=== PATIENT | female | born 1980 | race Caucasian/White ===

== ENCOUNTER 2021-04-30 13:28 | Day surgery (SDC) | payer BC, OTHER ==
[~2021-04-30 13:28] MED LIST: LACTATED RINGERS 1,000 ML IV SCH
[2021-04-30 14:13] VITALS: TEMP 98.9
[2021-04-30] MEDS ORDERED: LIDOCAINE 1% (10MG/ML) FOR IV START INTRADERMA ONE (14:19)
[2021-04-30] MEDS ORDERED: methylPREDNISolone ACETATE 40 MG/ML 1 ML VIAL ONE (14:22)
[2021-04-30] MEDS ORDERED: IOPAMIDOL M200 10 ML VIAL ONE (14:22)
[2021-04-30] MEDS ORDERED: MIDAZOLAM 2 MG/2 ML VIAL ONE (14:22)
[2021-04-30] MEDS ORDERED: fentaNYL (PF) 50 MCG/ML 2 ML AMP ONE (14:22)
--- NOTE | 2021-04-30 14:33 | P.PCN ---
Date of Procedure: 04/30/21 Procedure(s) Performed: PREOPERATIVE DIAGNOSIS: 1- Lumbar herniated Disc Diseases 2-Lumbar radiculopathy POSTOPERATIVE DIAGNOSIS: Same as preop diagnosis. PROCEDURE 1. Lumbar epidural steroid injection under fluoroscopic guidance at the L5-S1 level. (Fluoroscopy imaging was available in radiology department) 2. Lumbar epidurogram. ANESTHESIA: Local with 1% lidocaine 3 ml and , moderate sedation with intravenous Versed 2 mg ,and fentanyle 100 Mcg EBL: Minimal PROCEDURE INDICATION: The patient with low back pain and radiculitis symptoms unresponsive to conservative treatment. Fluoroscopy was used to optimize visualization of the needle placement and to maximize safety. PROCEDURE DESCRIPTION / TECHNIQUE: The patient was seen and identified in the preoperative area. Risks, benefits, complications including but not limited to infections ,bleeding ,allergic reaction to the medications ,nerve damage and not complete pain releife , and alternatives were discussed with the patient. The patient agreed to proceed with the procedure and signed the consent. IV was started, and vital signs were stable. Patient was taken to the OR and time out was completed. The patient was placed in the prone position on procedure table and a pillow was placed under the abdomen to reduce lumbar lordosis. The lumbosacral area was prepped and draped in the usual sterile fashion.ere closely monitored during the procedure. Conscious sedation was used during the procedure to decrease patients anxiety. Vital signs was monitered during the entire procedure. Using anterior-posterior fluoroscopy, the L5-S1 interlaminar space was identified and the skin over this site was marked and then infiltrated with 1% lidocaine subcutaneously. Subsequently, a 20-gauge Tuohy epidural needle was inserted and advanced toward the epidural space using the ``Loss of resistance technique and guided by AP and lateral fluoroscopy. The correct needle position in the epidural space was verified with the injection of 2 mL of the water soluble contrast dye Isovue 200 contrast and observing an excellent epidurogram with the epidural spread of the dye, after negative aspiration for blood and CSF and in the absence of paresthesias. Again after negative aspiration, a 6 ml mixture containing 80 mg of Depo-medrol , and 2 ml of preservative free Normal Saline, and 2 ml of preservative free lidocaine 1% solution was injected and a washout of epidurogram was seen. Needle was withdrawn intact, skin was cleansed, and bandages were applied. COMPLICATIONS: None DISPOSITION / PLANS: The patient was placed in a supine position and transferred to the recovery area in a stable condition for observation. There was no evidence of lower extremity motor or sensory deficit after the procedure. Patient was discharged from the recovery room after meeting discharge criteria. Home discharge instructions were given to the patient by the staff. The patient was reexamined prior to discharge. The patient will schedule a follow up in the clinic in 2-4 weeks.
[2021-04-30 14:41] VITALS: RESP 14
[2021-04-30] MEDS ORDERED: ONDANSETRON 4 MG/2 ML VIAL ONE (14:42)
[2021-04-30] MEDS ORDERED: IV FLUID CONTINUATION 1,000 ML IV ONE (14:47)
[2021-04-30] MEDS ORDERED: ONDANSETRON 4 MG/2 ML VIAL IVP ONE (14:47)
[2021-04-30 14:50] VITALS: BP 180/96; PULSE 79
--- NOTE | 2021-04-30 14:57 | FL ---
EXAMINATION TYPE: FL guided pain mgmt statistic DATE OF EXAM: 04/30/2021 HISTORY: Fluoroscopy time 3 seconds of fluoroscopy provided. IMPRESSION: 1. Fluoroscopy time.
== END 2021-04-30 15:23 | disposition home or self-care (01) ==
LOC: ORPAIN 13:28
PROVIDERS: ATTEND Specialist
DX: M51.16 Intervertebral disc disorders with radiculopathy, lumbar region (principal); Z88.6 Allergy status to analgesic agent; Z88.5 Allergy status to narcotic agent
CPT/HCPCS: 81025; 62323; J2250; J1030; J2405; J3010; Q9966

== ENCOUNTER 2024-10-17 10:32 | Inpatient (IN) | payer MEDICAID, OTHER ==
--- NOTE | 2024-10-17 11:31 | ED ---
Back Pain HPI - General Chief Complaint: Back Pain/Injury Stated Complaint: Back Pain Time Seen by Provider: 10/17/24 10:50 Source: patient, RN notes reviewed, old records reviewed Limitations: no limitations - History of Present Illness Initial Comments: 44-year-old female presenting to the ER for evaluation of back pain. Patient states she has chronic back pain. 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 She states during this twisting action she felt a snap/crack/pop in her spine. Since incident she has been experiencing a sharp lumbar right-sided back discomfort with radiation down right lower extremity. Patient was evaluated here on 10/09/24 and states "I received no help". Patient has been taking prescribed Nova, Flexeril, lyrica and ibuprofen without relief of symptoms. She is also tried heating pad and massage. As pain was not controlled she presented to [facility] on [address] lumbar spine scan completed. CT showing degenerative disc disease with disc herniations L4-L5 and L5-S1. Patient given symptomatic control with IV steroids, Dilaudid, Toradol. Patient was discharged home on prednisone and Valium. She states this is not eating with discomfort. She denies any prior back surgeries but is following up with regarding chronic back pain. Patient followed up with him this morning and was instructed to come to the ER for admission with plans on surgical intervention. She denies any saddle paresthesias, bowel or bladder incontinence/retention, fevers or history of IV drug abuse. No other complaints. - Related Data Home Medications Medication Instructions Recorded Confirmed HYDROcodone/APAP 10-325MG [Nova 1 tab PO Q8H PRN 04/30/21 04/30/21 10-325] Phentermine HCl [Adipex-P] 37.5 mg PO DAILY 04/30/21 04/30/21 Allergies Allergy/AdvReac Type Severity Reaction Status Date / Time butorphanol tartrate AdvReac Rash/Hives Verified 10/17/24 10:43 [From Stadol] codeine AdvReac Rash/Hives Verified 10/17/24 10:43 metronidazole [From Flagyl] AdvReac Rash/Hives Verified 10/17/24 10:43 propoxyphene napsylate AdvReac Rash/Hives Verified 10/17/24 10:43 [From Darvocet-N] Review of Systems ROS Statement: Those systems with pertinent positive or pertinent negative responses have been documented in the HPI. ROS Other: All systems not noted in ROS Statement are negative. Past Medical History Past Medical History: Hypertension Additional Past Medical History / Comment(s): sciatic nerve pain History of Any Multi-Drug Resistant Organisms: None Reported Past Surgical History: Section, Tubal Ligation Additional Past Surgical History / Comment(s): UTERINE ABLATION Past Psychological History: No Psychological Hx Reported Past Alcohol Use History: None Reported Past Drug Use History: None Reported General Exam Limitations: no limitations General appearance: alert, in no apparent distress Respiratory exam: Present: normal lung sounds bilaterally. Absent: respiratory distress, wheezes, rales, rhonchi, stridor Cardiovascular Exam: Present: regular rate, normal rhythm, normal heart sounds. Absent: systolic murmur, diastolic murmur, rubs, gallop, clicks Extremities exam: Present: normal inspection, full ROM, normal capillary refill. Absent: tenderness, pedal edema, joint swelling, calf tenderness Back exam: Present: normal inspection, full ROM, tenderness (L4-S1), vertebral tenderness (L4 S1.), other (+ right straight leg raise) Neurological exam: Present: alert, oriented X3, CN II-XII intact Skin exam: Present: warm, dry, intact, normal color. Absent: rash Course Vital Signs 10/17/24 10:38 Temperature 98.2 F Pulse Rate 85 Respiratory 16 Rate Blood Pressure 148/90 O2 Sat by Pulse 98 Oximetry - Reevaluation(s) Reevaluation #1: 10/17/24 12:[address] Tomas. He advised on admitted patient, pain control and n.p.o. at midnight. He also request MRI of the lumbar spine Medical Decision Making - Medical Decision Making Was pt. sent in by a medical professional or institution (, PA, SANDWICH MACHINE OPERATOR, urgent care, hospital, or detention...) When possible be specific @ -Dr. Tomas for further evaluation and admission of lumbar back pain Did you speak to anyone other than the patient for history (EMS, parent, family, police, friend...)? What history was obtained from this source @ -No Did you review nursing and triage notes (agree or disagree)? Why? @ -I reviewed and agree with nursing and triage notes Were old charts reviewed (outside hosp., previous admission, EMS record, old EKG, old radiological studies, urgent care reports/EKG's, detention records)? Report findings @ -[ER visit from 10-09-2024. Patient evaluated after back injury at work. Co nservative treatment options were discussed. Patient refused medications at that time. Patient discharged home. CT lumbar spine reviewed from at [facility]. CT showing degenerative disc disease with disc herniations L4-L5 and L5-S1. Patient received symptomatic treatment at [facility] and was discharged home with Valium and prednisone. Differential Diagnosis (chest pain, altered mental status, abdominal pain women, abdominal pain men, vaginal bleeding, weakness, fever, dyspnea, syncope, headache, dizziness, GI bleed, back pain, seizure, CVA, palpatations, mental health, musculoskeletal)? @ -Differential Back Pain:Strain, zoster, cauda equina syndrome, epidural abscess, vertebral osteomyelitis, discitis, fracture, subluxation, disc hernia tion, DJD, spinal stenosis, dissection, AAA, pancreatitis, peptic ulcer disease, pyelonephritis, kidney stone, this is not meant to be an all-inclusive list. EKG interpreted by me (3pts min.). @ -[As above X-rays interpreted by me (1pt min.). @ -None done CT interpreted by me (1pt min.). @ -None done U/S interpreted by me (1pt. min.). @ -None done What testing was considered but not performed or refused? (CT, X-rays, U/S, labs)? Why? @ -None What meds were considered but not given or refused? Why? @ -None Did you discuss the management of the patient with other professionals (professionals i.e. , PA, SANDWICH MACHINE OPERATOR, lab, RT, psych nurse, social director, transcripter, teacher, property officer, case managers)? Give summary @ -Case discussed with Dr. Tomas. He advised on admission, pain control and plan for intervention tomorrow. MRI ordered per orthopedics. Medicine on consult. Was smoking cessation discussed for >3mins.? @ -No Was critical care preformed (if so, how long)? @ -No Were there social determinants of health that impacted care today? How? (Homelessness, low income, unemployed, alcoholism, drug addiction, transportation, low edu. Level, literacy, decrease access to med. care, care home, rehab)? @ -No Was there de-escalation of care discussed even if they declined (Discuss DNR or withdrawal of care, Hospice)? DNR status @ -No What co-morbidities impacted this encounter? (DM, HTN, Smoking, COPD, CAD, Cancer, CVA, ARF, Chemo, Hep., AIDS, mental health diagnosis, sleep apnea, morbid obesity)? @ -Back pain Was patient admitted / discharged? Hospital course, mention meds given and route, prescriptions, significant lab abnormalities, going to OR and other pertinent info. @ -Admitted. 44-year-old female presented the ER for evaluation of back pain. Patient sent by Dr. Tomas for admission with plans on surgical intervention of lumbar back pain.Upon arrival vitals within acceptable limits. Patient in no signs of acute distress resting comfortably on stretcher. Patient is neurovascularly intact. No red flag back pain symptoms indicative of cauda equina syndrome. Case was discussed with Dr. Tomas who advised on admission, preoperative labs, MRI lumbar spine without contrast with plan on surgical intervention possibly tomorrow. Patient admitted to orthopedics with medicine on consult. Pain control with IV Dilaudid, with improvement upon reevaluation. Preoperative laboratory studies and MRI pending at time of admission. N.p.o. at midnight diet. Patient agreeable and admitted in stable condition. Case discussed with ED attending, Dr. Russell. Undiagnosed new problem with uncertain prognosis? @ -No Drug Therapy requiring intensive monitoring for toxicity (Heparin, Nitro, Insulin, Cardizem)? @ -No Were any procedures done? @ -No Diagnosis/symptom? @ -Back pain Acute, or Chronic, or Acute on Chronic? @ -Acute Uncomplicated (without systemic symptoms) or Complicated (systemic symptoms)? @ -Complicated Side effects of treatment? @ -No Exacerbation, Progression, or Severe Exacerbation? @ -No Poses a threat to life or bodily function? How? (Chest pain, [place], [place], pneumonia, PE, COPD, DKA, ARF, appy, cholecystitis, CVA, Diverticulitis, Homicidal, Suicidal, threat to staff... and all critical care pts) @ -Possibly - Lab Data Result diagrams: 10/17/24 12:39 10/17/24 12:39 Lab Results 10/17/24 10/17/24 Range/Units 12:39 12:39 WBC 11.22 H (4.50-10.00) 10*3/uL RBC 4.04 L (4.10-5.20) 10*6/uL Hgb 12.3 (12.0-15.0) g/dL Hct 36.7 L (37.2-46.3) % MCV 90.8 (80.0-97.0) fL MCH 30.4 (27.0-32.0) pg MCHC 33.5 (32.0-37.0) g/dL Plt Count 279 (140-440) 10*3/uL MPV 9.8 (9.5-12.2) fL Immature Gran % (Auto) 0.9 % Neutrophils % 66.0 % Lymphocytes % 24.4 % Monocytes % 8.0 % Eosinophils % 0.3 % Basophils % 0.4 % Immature Gran # 0.10 H (0.00-0.04) 10*3/uL Neutrophils # 7.41 (1.80-7.70) 10*3/uL Lymphocytes # 2.74 (0.90-5.00) 10*3/uL Monocytes # 0.90 (0.20-1.00) 10*3/uL Eosinophils # 0.03 L (0.04-0.35) 10*3/uL Basophils # 0.04 (0.00-0.10) 10*3/uL Sodium 140 (137-145) mmol/L Potassium 3.5 (3.5-5.1) mmol/L Chloride 105 (98-107) mmol/L Carbon Dioxide 23 (22-30) mmol/L Anion Gap 12 mmol/L BUN 19 H (7-17) mg/dL Creatinine 0.76 (0.52-1.04) mg/dL Est GFR (CKD-EPI)AfAm >90 (>60 ml/min/1.73 sqM) Est GFR (CKD-EPI)NonAf >90 (>60 ml/min/1.73 sqM) Glucose 86 (74-99) mg/dL Calcium 9.3 (8.4-10.2) mg/dL Total Bilirubin 0.3 (0.2-1.3) mg/dL AST 20 (14-36) U/L ALT 17 (4-34) U/L Alkaline Phosphatase 44 (38-126) U/L Total Protein 6.8 (6.3-8.2) g/dL Albumin 3.8 (3.5-5.0) g/dL - EKG Data -: EKG Interpreted by Me EKG Comments: EKG taken at 12: 34 showing a sinus rhythm. No ST segment elevations or depressions. No T wave inversions. Ventricular rate 95, parable 147, QRS duration 89, QT/QTc 341/394. Disposition Clinical Impression: Back pain Disposition: ADMITTED IP TO THIS HOSP Condition: Stable Referrals: Kenia Albright MD [Primary Care Provider] - 1-2 days Time of Disposition: 12:26
[2024-10-17] MEDS: ONDANSETRON 4 MG/2 ML VIAL IVP STA (11:49)
[2024-10-17] MEDS: HYDROmorphone 1 MG/ML 1 ML SYRINGE IVP STA (11:51)
[2024-10-17] MEDS ORDERED: ONDANSETRON 4 MG/2 ML VIAL IVP PRN (12:25)
[2024-10-17] MEDS ORDERED: NALOXONE 0.4 MG/ML 1 ML VIAL IV PRN (12:25)
[2024-10-17 12:55] LABS: Basophils # (A) 0.04 10*3/uL (0.00-0.10); Basophils % (A) 0.4 %; Eosinophils # (A) 0.03 10*3/uL (0.04-0.35); Eosinophils % (A) 0.3 %; HCT 36.7 % (37.2-46.3); HGB 12.3 g/dL (12.0-15.0); Lymphocytes # (A) 2.74 10*3/uL (0.90-5.00); Lymphocytes % (A) 24.4 %; MCH 30.4 pg (27.0-32.0); MCHC 33.5 g/dL (32.0-37.0); MCV 90.8 fL (80.0-97.0); Mean Platelet Volume 9.8 fL (9.5-12.2); Neutrophils # (A) 7.41 10*3/uL (1.80-7.70); Platelet Count 279 10*3/uL (140-440); RBC 4.04 10*6/uL (4.10-5.20); RDW 12.6 % (11.5-14.5); WBC 11.22 10*3/uL (4.50-10.00)
[2024-10-17] MEDS: SODIUM CHLORIDE 0.9% 1,000 ML IV SCH (12:59)
[2024-10-17 13:06] LABS: ALT 17 U/L (4-34); AST 20 U/L (14-36); African American GFR (CKD) >90 (>60 ml/min/1.73 sqM); Albumin 3.8 g/dL (3.5-5.0); Alkaline Phosphatase 44 U/L (38-126); Anion Gap 12 mmol/L; Blood Urea Nitrogen 19 mg/dL (7-17); Calcium 9.3 mg/dL (8.4-10.2); Carbon Dioxide 23 mmol/L (22-30); Chloride 105 mmol/L (98-107); Glucose 86 mg/dL (74-99); Non-African American GFR(CKD) >90 (>60 ml/min/1.73 sqM); Potassium 3.5 mmol/L (3.5-5.1); Sodium 140 mmol/L (137-145); Total Bilirubin 0.3 mg/dL (0.2-1.3); Total Protein 6.8 g/dL (6.3-8.2)
[2024-10-17] MEDS: HYDROmorphone 1 MG/ML 1 ML SYRINGE IVP PRN (14:55)
[2024-10-17 15:12] LABS: INR 0.9 (<1.2); Prothrombin Time 10.3 sec (10.0-12.5)
[2024-10-17 15:14] LABS: Partial Thromboplastin Time 20.1 sec (22.0-30.0)
[2024-10-17] MEDS ORDERED: HYDROcodone/APAP 10-325MG 1 EACH TAB PO SCH (17:00)
[2024-10-17] MEDS ORDERED: DEXTROSE 50% SYRINGE 50 ML IVP PRN ×2 (17:06)
[2024-10-17] MEDS: diazePAM 5 MG TAB PO PRN (17:32)
[2024-10-17] MEDS: PREGABALIN 100 MG CAP PO SCH (17:32)
--- NOTE | 2024-10-17 17:51 | P.CONS ---
History of Present Illness - Reason for Consult Consult date: 10/17/24 Medical Management Requesting physician: Geronimo Tomas - Chief Complaint Back Pain - History of Present Illness History of Presenting Illness: Patient is a pleasant 44-year-old female with a past medical history of hypertension, insulin resistance, chronic back pain with left lower extremity neuropathy and decreased sensation. She presented to the emergency department with acute on chronic lower back pain. Patient reports pain typically radiates down the left leg with decreased sensation but states she is having right lower extremity sciatica and uncontrolled 10 out of 10 back pain despite being on [place] tens, Motrin 800, Lyrica, and Valium. She denies having any saddlebag anesthesia, denies having any involuntary loss of bowel or bladder, and denies having any new or worsening numbness in lower extremities. On arrival to our facility, patient underwent evaluation in the emergency department. Vital signs upon arrival show blood pressure 148/90, heart rate 85, respiratory rate 16, temp 98.2 F, and SpO2 of 98% on room air. EKG was completed showing normal sinus rhythm at 95 bpm with no noted T wave or ST abnormality showing no signs of acute ischemia upon personal review and interpretation. Labs completed and reviewed. CBC showing leukocytosis with WBC count of 11.22. Coagulation profile showing a low PTT of 20.1 otherwise normal findings. BMP showing mild prerenal azotemia with BUN of 19 otherwise normal findings. Blood glucose 86. Liver profile unremarkable. Per documentation in chart patient was seen at [facility] on 10/15/[address] lumbar spine revealing degenerative disc disease with disc herniations L4-L5 and L5-S1. Patient was admitted under orthospine surgery team and we were consulted for medical management throughout hospitalization. Review of systems: Pertinent positives and negatives as discussed in HPI, a complete review of systems was performed and all other systems are negative. Physical exam: Vital signs reviewed and stable. General: Nontoxic, no distress and appears stated age. Derm: Skin warm and dry, normal coloration for ethnicity. Head: Atraumatic, normocephalic and symmetric. Eyes: EOM's intact, no lid lag, and anicteric sclera Mouth: no lip lesions, mucus membranes moist Cardiovascular: regular rate and rhythm with normal S1S2, no murmur, positive posterior tibial pulses bilaterally, and cap refill < 2 seconds. Lungs: Respirations even, regular, and unlabored on room air. Lungs CTA bilaterally, no rhonchi, no rales, no wheezing, and no accessory muscle usage. Abdominal: soft, nontender to palpation, no guarding, no appreciable organomeg myah Ext: No gross muscle atrophy, no edema, no contractures. Movement and sensation intact. Patient does report decreased sensation in left lower extremity but reports at baseline. Neuro: Speech clear, face symmetrical and CN II-XII grossly intact with no noted focal neuro deficits Psych: Alert and oriented to person, place, time, and situation. Appropriate and pleasant affect. Assessment and Plan of Care: Acute on chronic lower back pain Herniated disc L4-L5 and L5-S1 Degenerative disc disease - Patient admitted under orthospine surgery team. - Continue symptomatic care and pain management with Lyrica 100 mg 4 times daily, Valium 5 mg every 8 hours as needed for muscle spasms, Tylenol 650 mg every 6 hours as needed for mild to moderate pain, [place] 10/325 mg tablets every 6 hours as needed for moderate to severe pain, and Dilaudid 1 mg every 3 hours as needed for severe uncontrolled pain. - Maintain fall precautions. - MRI lumbar spine - Patient had tubal ligation however order placed for serum hCG Hypertension -Monitor vital signs and continue daily medication regimen with amlodipine 10 mg daily and losartan 100 mg daily Insulin resistance, type II [id number] diabetes mellitus -Hold metformin and place patient on glycemic protocol with Humalog sliding scale. ADHD -Continue Vyvanse 40 mg daily. Data and imaging reviewed: As stated above in HPI Thank you for allowing us to participate in the care of this pleasant patient. Do not hesitate to contact us with questions. Someone can be reached from the [facility] hospitalist group all hours of the day at [phone] or via [employer]. Patient was seen independently by Nurse Practitioner. This document was prepared using [employer] dictation software. Please allow for errors in lead software architect while rare they do occur. Andrew Angeles NP rendered care for this patient independently, reviewed the findings and plan as documented in the note above and agree with plan. I did not physically speak with or examine the patient on this date. Past Medical History Past Medical History: Hypertension Additional Past Medical History / Comment(s): sciatic nerve pain History of Any Multi-Drug Resistant Organisms: None Reported Past Surgical History: Section, Tubal Ligation Additional Past Surgical History / Comment(s): UTERINE ABLATION Past Psychological History: No Psychological Hx Reported Past Alcohol Use History: None Reported Past Drug Use History: None Reported Medications and Allergies Home Medications Medication Instructions Recorded Confirmed Type HYDROcodone/APAP 10-325MG [[place] 1 tab PO Q6H 04/30/21 10/17/24 History 10-325] Ibuprofen [Motrin] 800 mg PO Q8H PRN 10/17/24 10/17/24 History Lisdexamfetamine Dimesylate 40 mg PO DAILY 10/17/24 10/17/24 History [Vyvanse] Losartan Potassium 100 mg PO DAILY 10/17/24 10/17/24 History Pregabalin [Lyrica] 100 mg PO QID 10/17/24 10/17/24 History amLODIPine [Norvasc] 10 mg PO DAILY 10/17/24 10/17/24 History buPROPion XL [Wellbutrin XL] 150 mg PO DAILY 10/17/24 10/17/24 History diazePAM [Valium] 5 mg PO Q8H PRN 10/17/24 10/17/24 History metFORMIN HCL 500 mg PO BID 10/17/24 10/17/24 History predniSONE 50 mg PO DAILY 10/17/24 10/17/24 History Allergies Allergy/AdvReac Type Severity Reaction Status Date / Time butorphanol tartrate AdvReac Rash/Hives Verified 10/17/24 14:41 [From Stadol] codeine AdvReac Rash/Hives Verified 10/17/24 14:41 metronidazole [From Flagyl] AdvReac Rash/Hives Verified 10/17/24 14:41 propoxyphene napsylate AdvReac Rash/Hives Verified 10/17/24 14:41 [From Darvocet-N] Physical Exam Vitals: Vital Signs Temp Pulse Resp BP Pulse Ox 10/17/24 13:21 98.1 F 78 20 146/78 98 10/17/24 10:38 98.2 F 85 16 148/90 98 Intake and Output 10/17/24 10/17/24 10/17/24 06:59 14:59 22:59 Other: Weight 75.75 kg Results CBC & Chem 7: 10/17/24 12:39 10/17/24 12:39 Labs: Abnormal Lab Results - Last 24 Hours (Table) 10/17/24 10/17/24 10/17/24 Range/Units 12:39 12:39 12:39 WBC 11.22 H (4.50-10.00) 10*3/uL RBC 4.04 L (4.10-5.20) 10*6/uL Hct 36.7 L (37.2-46.3) % Immature Gran # 0.10 H (0.00-0.04) 10*3/uL Eosinophils # 0.03 L (0.04-0.35) 10*3/uL APTT 20.1 L (22.0-30.0) sec BUN 19 H (7-17) mg/dL
[2024-10-17] MEDS: INSULIN LISPRO (HumaLOG) 100 UNIT/ML 10 mL VL SQ SCH (17:57)
[2024-10-17] MEDS: HYDROcodone/APAP 10-325MG 1 EACH TAB PO PRN (20:11)
[2024-10-17 20:14] LABS: Glucose,Whole Blood 132 mg/dL (70-110)
[2024-10-18] MEDS: amLODIPine 10 MG TAB PO SCH (08:24)
[2024-10-18] MEDS: LOSARTAN 50 MG TAB PO SCH (08:24)
[2024-10-18] MEDS: buPROPion XL 150 MG TAB.ER.24H PO SCH (08:25)
[2024-10-18] MEDS: LISDEXAMFETAMINE DIMESYLATE 40 MG PO SCH (08:35)
[2024-10-18] MEDS ORDERED: SENNOSIDES 8.6 MG TAB PO PRN (13:07)
--- NOTE | 2024-10-18 13:08 | P.HPOR ---
History of Present Illness H&P Date: 10/18/24 Chief Complaint: back pain Patient is a 44-year-old female who presents to the emergency department as a direct admission from Dr. Tomas's office due to right lower extremity radiculopathy and low back pain. Patient has a past medical history significant for hypertension, insulin resistance and chronic low back pain. Patient initially had issues in 2020 where she had some numbness in the left lower extremity and was seen by Dr. Tomas office was transferred to another spine surgeon office. Patient says she was treated nonoperatively and this continued for a few years. 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 Patient was seen at bedside this morning on 1 obs. Patient states she is having intense right sided low back pain with radiation down the entire right leg. Patient also states there is weakness with this. Patient denies any loss of bowel/bladder control. Patient says she does have difficult time with ambulation and getting around the room she tends to drag her right leg. Patient also mentions some rigidity down the right lower extremity. Patient also states that she does have a decrease sensation in the left lower extremity. Does not note any weakness in the left lower extremity. Patient says she has previously undergone multiple epidural steroid injections. Patient denies any previous orthopedic spine surgery. Patient did have CT scan of lumbar spine at [facility] on 10/15/2024 which did reveal degenerative disc disease with disc radiations at L4 to L5 and L5-S1. Patient denies any chest pain, change in vis ion, saddle anesthesia. Past Medical History Past Medical History: Hypertension Additional Past Medical History / Comment(s): sciatic nerve pain History of Any Multi-Drug Resistant Organisms: None Reported Past Surgical History: Section, Tubal Ligation Additional Past Surgical History / Comment(s): UTERINE ABLATION Past Psychological History: No Psychological Hx Reported Past Alcohol Use History: None Reported Past Drug Use History: None Reported Medications and Allergies Home Medications Medication Instructions Recorded Confirmed Type HYDROcodone/APAP 10-325MG [[place] 1 tab PO Q6H 04/30/21 10/17/24 History 10-325] Ibuprofen [Motrin] 800 mg PO Q8H PRN 10/17/24 10/17/24 History Lisdexamfetamine Dimesylate 40 mg PO DAILY 10/17/24 10/17/24 History [Vyvanse] Losartan Potassium 100 mg PO DAILY 10/17/24 10/17/24 History Pregabalin [Lyrica] 100 mg PO QID 10/17/24 10/17/24 History amLODIPine [Norvasc] 10 mg PO DAILY 10/17/24 10/17/24 History buPROPion XL [Wellbutrin XL] 150 mg PO DAILY 10/17/24 10/17/24 History diazePAM [Valium] 5 mg PO Q8H PRN 10/17/24 10/17/24 History metFORMIN HCL 500 mg PO BID 10/17/24 10/17/24 History predniSONE 50 mg PO DAILY 10/17/24 10/17/24 History Allergies Allergy/AdvReac Type Severity Reaction Status Date / Time butorphanol tartrate AdvReac Rash/Hives Verified 10/17/24 14:41 [From Stadol] codeine AdvReac Rash/Hives Verified 10/17/24 14:41 metronidazole [From Flagyl] AdvReac Rash/Hives Verified 10/17/24 14:41 propoxyphene napsylate AdvReac Rash/Hives Verified 10/17/24 14:41 [From Darvocet-N] Physical Examination inspection: Negative for any open fractures, significant erythema/ecchymosis/open wounds. Sensation: Sensation is altered/diminished throughout the left lower extremity and right lower extremity on exam. Palpation: Moderate to severe tenderness to palpation on the right lower back and right SI joint on exam. Range of motion: Very limited range of motion on the right lower extremity on exam due to referred pain and stiffness in the right side lower back. Patient is able to flex and extend left hip left knee and dorsi and plantarflex left ankle on exam. Motor: 3/5 in all major motor groups in right lower extremity. 4/5 in all major muscle groups in left lower extremity. Neurovascular: Radial pulse intact, 2+ bilaterally. Cap refill under 3 seconds in digits of upper extremities. Special test: Negative clonus bilaterally. Negative Leigh bilaterally. Negative Homans bilaterally. Results - Labs Labs: Abnormal Lab Results - Last 24 Hours (Table) 10/17/24 10/17/24 10/17/24 Range/Units 12:39 12:39 12:39 WBC 11.22 H (4.50-10.00) 10*3/uL RBC 4.04 L (4.10-5.20) 10*6/uL Hct 36.7 L (37.2-46.3) % Immature Gran # 0.10 H (0.00-0.04) 10*3/uL Eosinophils # 0.03 L (0.04-0.35) 10*3/uL APTT 20.1 L (22.0-30.0) sec BUN 19 H (7-17) mg/dL POC Glucose (mg/dL) (70-110) mg/dL 10/17/24 Range/Units 20:12 WBC (4.50-10.00) 10*3/uL RBC (4.10-5.20) 10*6/uL Hct (37.2-46.3) % Immature Gran # (0.00-0.04) 10*3/uL Eosinophils # (0.04-0.35) 10*3/uL APTT (22.0-30.0) sec BUN (7-17) mg/dL POC Glucose (mg/dL) 132 H (70-110) mg/dL H & H 10/17/24 Range/Units 12:39 Hgb 12.3 (12.0-15.0) g/dL Hct 36.7 L (37.2-46.3) % Coagulation 10/17/24 Range/Units 12:39 INR 0.9 (<1.2) Result Diagrams: 10/17/24 12:39 10/17/24 12:39 Assessment and Plan Assessment: 1. Right lower extremity radiculopathy; low back pain Plan: 1. Right lower extremity radiculopathy; low back pain -[facility] scan results [facility] on 10[facility]15[facility]2024 revealed degenerative disc disease and disc herniations at L4-L5 and L5-S1. I discussed the findings of the exam with my attending, Dr. Tomas. At this time we have ordered MRI stat of the lumbar spine for further evaluation. Patient to be n.p.o. at midnight tonight with possible surgical intervention tomorrow versus Tuesday. Continue with conservative measures at this time. Pain medication as needed. Weightbearing as tolerated with walker. Appreciate PT/OT recommendations. We will continue to follow patient during stay in the hospital. Further Ortho/spine recommendations to come following MRI results on lumbar spine. 2. Appreciate medical management 3. Pain management -[place]; Lyyaaa 4. GI prophylaxis - senna 5. DVT prophylaxis -mechanical 6. PT/OT -weightbearing as tolerated with walker 7. Encourage incentive spirometer use Time with Patient: Less than 30
[2024-10-18] MEDS: LORazepam 2 MG/ML INJ IV ONE (14:48)
--- NOTE | 2024-10-18 15:26 | P.PN ---
Subjective Progress Note Date: 10/18/24 Hospital Course: Patient is a pleasant 44-year-old female with a past medical history of hypertension, insulin resistance, chronic back pain with left lower extremity neuropathy and decreased sensation. She presented to the emergency department with acute on chronic lower back pain. Patient reports pain typically radiates down the left leg with decreased sensation but states she is having right lower extremity sciatica and uncontrolled 10 out of 10 back pain despite being on [place] tens, Motrin 800, Lyrica, and Valium. She denies having any saddlebag anesthesia, denies having any involuntary loss of bowel or bladder, and denies having any new or worsening numbness in lower extremities. On arrival to our facility, patient underwent evaluation in the emergency department. Vital signs upon arrival show blood pressure 148/90, heart rate 85, respiratory rate 16, temp 98.2 F, and SpO2 of 98% on room air. EKG was completed showing normal sinus rhythm at 95 bpm with no noted T wave or ST abnormality showing no signs of acute ischemia upon personal review and interpretation. Labs completed and reviewed. CBC showing leukocytosis with WBC count of 11.22. Coagulation profile showing a low PTT of 20.1 otherwise normal findings. BMP showing mild p rerenal azotemia with BUN of 19 otherwise normal findings. Blood glucose 86. Liver profile unremarkable. Per documentation in chart patient was seen at [facility] on 10/15/[address] lumbar spine revealing degenerative disc disease with disc herniations L4-L5 and L5-S1. Patient was admitted under orthospine surgery team and we were consulted for medical management throughout hospitalization. Physical exam: Patient was seen and fully evaluated at bedside this morning. She reports continued persistent lumbar back pain with right lower extremity radiculopathy. She continues to deny having any saddlebag anesthesia or new onset or changes in chronic numbness/tingling in her extremities. She denies having any involuntary loss of bowel or bladder. She is awaiting to undergo MRI later today per RN MRI is scheduled for 3:30 PM. Vital signs reviewed and stable. General: Nontoxic, no distress and appears stated age. Derm: Skin warm and dry, normal coloration for ethnicity. Head: Atraumatic, normocephalic and symmetric. Eyes: EOM's intact, no lid lag, and anicteric sclera Mouth: no lip lesions, mucus membranes moist Cardiovascular: regular rate and rhythm with normal S1S2, no murmur, positive posterior tibial pulses bilaterally, and cap refill < 2 seconds. Lungs: Respirations even, regular, and unlabored on room air. Lungs CTA bilaterally, no rhonchi, no rales, no wheezing, and no accessory muscle usage. Abdominal: soft, nontender to palpation, no guarding, no appreciable organomegaly Ext: No gross muscle atrophy, no edema, no contractures. Movement and sensation intact. Patient does report decreased sensation in left lower extremity but reports at baseline. Neuro: Speech clear, face symmetrical and CN II-XII grossly intact with no noted focal neuro deficits Psych: Alert and oriented to person, place, time, and situation. Appropriate and pleasant affect. Assessment and Plan of Care: Acute on chronic lower back pain Herniated disc L4-L5 and L5-S1 Degenerative disc disease - Patient admitted under orthospine surgery team. - Continue symptomatic care and pain management with Lyrica 100 mg 4 times daily, Valium 5 mg every 8 hours as needed for muscle spasms, Tylenol 650 mg every 6 hours as needed for mild to moderate pain, [place] 10/325 mg tablets every 6 hours as needed for moderate to severe pain, and Dilaudid 1 mg every 3 hours as needed for severe uncontrolled pain. - Maintain fall precautions. - MRI lumbar spine Hypertension -Monitor vital signs and continue daily medication regimen with amlodipine 10 mg daily and losartan 100 mg daily Insulin resistance, type II [id number] diabetes mellitus -Hold metformin and place patient on glycemic protocol with Humalog sliding scale. ADHD -Continue Vyvanse 40 mg daily. Data and imaging reviewed: Labs reviewed. CBC showing leukocytosis with WBC count of 11.22. Coagulation profile showing a low PTT of 20.1 otherwise normal findings. BMP showing mild prerenal azotemia with BUN of 19 otherwise normal findings. Blood glucose 86. Liver profile unremarkable. Serum hCG negative. Vital signs reviewed. Blood pressure 166/91, heart rate 68, respiratory rate 17, temp 98.2 F, and SpO2 of 97% on room air. Thank you for allowing us to participate in the care of this pleasant patient. Do not hesitate to contact us with questions. Someone can be reached from the [facility] hospitalist group all hours of the day at [phone] or via perfect serve. Patient was seen independently by Nurse Practitioner. This document was prepared using [employer] dictation software. Please allow for errors in railroad car repair supervisor while rare they do occur. Andrew Angeles HEEL GOUGER rendered care for this patient independently, reviewed the findings and plan as documented in the note above and agree with plan. I did not physically speak with or examine the patient on this date. Objective - Vital Signs Vital signs: Vital Signs Temp 98.2 F 10/18/24 07:58 Pulse 68 10/18/24 07:58 Resp 17 10/18/24 02:00 BP 166/91 10/18/24 07:58 Pulse Ox 97 10/18/24 07:58 FiO2 Intake & Output 10/17/24 10/18/24 10/18/24 18:59 06:59 18:59 Output Total 0 Balance 0 Weight 80.2 kg Output: Stool 0 Other: Voiding Method Toilet # Voids 2 - Labs CBC & Chem 7: 10/17/24 12:39 10/17/24 12:39 Labs: Abnormal Lab Results - Last 24 Hours (Table) 10/17/24 10/17/24 10/17/24 Range/Units 12:39 12:39 12:39 WBC 11.22 H (4.50-10.00) 10*3/uL RBC 4.04 L (4.10-5.20) 10*6/uL Hct 36.7 L (37.2-46.3) % Immature Gran # 0.10 H (0.00-0.04) 10*3/uL Eosinophils # 0.03 L (0.04-0.35) 10*3/uL APTT 20.1 L (22.0-30.0) sec BUN 19 H (7-17) mg/dL POC Glucose (mg/dL) (70-110) mg/dL 10/17/24 Range/Units 20:12 WBC (4.50-10.00) 10*3/uL RBC (4.10-5.20) 10*6/uL Hct (37.2-46.3) % Immature Gran # (0.00-0.04) 10*3/uL Eosinophils # (0.04-0.35) 10*3/uL APTT (22.0-30.0) sec BUN (7-17) mg/dL POC Glucose (mg/dL) 132 H (70-110) mg/dL
--- NOTE | 2024-10-18 16:08 | MR ---
EXAMINATION TYPE: MR lumbar spine wo/w con DATE OF EXAM: 10/18/2024 3:49 PM COMPARISON: Lumbar spine radiograph 10/04/2024, CT lumbar spine 10/15/2024, MRI lumbar spine 01/10/2021, 04/12/2015 CLINICAL INDICATION: Female, 44 years old with history of pain, Lumbar pain IV Contrast: 8 cc Gadobutrol (None if empty) TECHNIQUE: Multiplanar, multisequence images of the lumbar spine were acquired without and with 8 mL intravenous Gadobutrol gadolinium contrast. FINDINGS: Alignment: The lumbar vertebral bodies have preserved heights and alignment. Cord: The conus medullaris and the distal spinal cord appear unremarkable with regards to their signa l intensity and morphology. However there is smooth thickening of the thickening of the spinal canal nerve roots beginning at the L3-L4 level and extending inferiorly with enhancement. This is new from prior MRI. Bones/Discs: Type II Modic changes of the endplates around L5-S1 disc. Disc desiccation with height l oss involving the L4-L5 and L5-S1 discs. L1-L2: No significant disc pathology. Spinal canal is patent. The neural foramen are patent. L2-L3: No significant disc pathology. Spinal canal is patent. The neural foramen are patent. L3-L4: No significant disc pathology. Spinal canal is patent. The neural foramen are patent. L4-L5: Right paracentral disc protrusion with abutment of the exiting right S1 nerve root. Resultant mild central canal stenosis. Mild right neural foraminal stenosis. The left neural foramen is patent. L5-S1: Left paracentral disc protrusion with mild central canal stenosis. Mild left neural foraminal stenosis. The right neural foramen is patent. Other findings: Posterior back subcutaneous edema. IMPRESSION: 1. Redemonstration of L4-L5 and L5-S1 disc herniations. The L4-L5 disc herniation abuts the exiting right S1 nerve root. 2. Thickening of the cauda equina with exiting nerve root enhancement. This is nonspecific and can b e seen with a variety of infectious/inflammatory etiologies. Further workup is recommended. [facility], , 10/18/2024 4:05 PM
[2024-10-18 17:08] LABS: Glucose,Whole Blood 91 mg/dL (70-110)
--- NOTE | 2024-10-19 08:06 | P.PN ---
Progress Note - Text Progress Note Date: 10/19/24 MRI reviewed. Pt has HNP at L4-5 RIGHT and L5-S1 smaller but broad. Both cause stenosis. L4-5 causes significant central and RIGHT foraminal stenosis. She would at minimum need RIGHT L4-5 laminectomy microdiscectomy. She needs a fusion at L5-S1 due to severe degenerative collapse and the HNP howevere her pressing issue at this time seems to be the L4-5 HNP. We will discuss with pt and look for surgical time.
[2024-10-19] MEDS ORDERED: GLYCOPYRROLATE 0.2 MG/ML 2 ML VIAL ONE (09:11)
[2024-10-19] MEDS ORDERED: fentaNYL (PF) 50 MCG/ML 2 ML AMP ONE (09:11)
[2024-10-19] MEDS ORDERED: LIDOCAINE 1% INJ 10MG/ML (20 ML MDV) ONE (09:11)
[2024-10-19] MEDS ORDERED: MIDAZOLAM 2 MG/2 ML VIAL ONE (09:11)
[2024-10-19] MEDS ORDERED: KETAMINE HCL IN 0.9 % NACL 50 MG/5 ML SYRINGE ONE (09:11)
[2024-10-19] MEDS ORDERED: PROPOFOL 10 MG/ML 20 ML VIAL IV ONE (09:11)
[2024-10-19] MEDS ORDERED: NEOSTIGMINE 1 MG/ML 10 ML VIAL ONE (09:11)
[2024-10-19] MEDS ORDERED: ROCURONIUM 10 MG/ML (5 ML VIAL) IV ONE (09:11)
[2024-10-19] MEDS ORDERED: SUCCINYLCHOLINE CHLORIDE 200 MG/10 ML VIAL IV ONE (09:11)
[2024-10-19] MEDS ORDERED: ONDANSETRON 4 MG/2 ML VIAL ONE (09:11)
[2024-10-19] MEDS ORDERED: TRANEXAMIC 1,000 MG/100ML-NACL PREMIX BAG ONE (09:11)
--- NOTE | 2024-10-19 11:13 | P.PN ---
Subjective Progress Note Date: 10/19/24 Principal diagnosis: Right lower extremity radiculopathy; low back pain Patient was seen at bedside this morning on 4 S. lying in the semirecumbent composition. Patient says she would like to speak with Dr. Tomas about surgical intervention options. Patient believes she needs more extensive surgery to correct every finding from the CT scan and MRI of the spine and would like to discuss the findings of the MRI with Dr. Tomas. Patient states she is still having pain and weakness down the right lower extremity also mentions numbness which has been ongoing in the left lower extremity for years. I did discuss the findings of the MRI of the lumbar spine with patient at bedside and she is aware of the findings and does not want anything other than surgical intervention at this time. Objective - Vital Signs Vital signs: Vital Signs Temp 98.2 F 10/19/24 07:06 Pulse 67 10/19/24 07:06 Resp 17 10/19/24 07:06 BP 127/82 10/19/24 07:06 Pulse Ox 97 10/19/24 07:06 FiO2 Intake & Output 10/18/24 10/19/24 10/19/24 18:59 06:59 18:59 Other: Voiding Method Toilet # Voids 2 - Exam inspection: Negative for any open fractures, significant erythema/ecchymosis/open wounds. Sensation: Sensation is altered/diminished throughout the left lower extremity and right lower extremity on exam. Palpation: Moderate to severe tenderness to palpation on the right lower back and right SI joint on exam. Range of motion: Very limited range of motion on the right lower extremity on exam due to referred pain and stiffness in the right side lower back. Patient is able to flex and extend left hip left knee and dorsi and plantarflex left ankle on exam. Motor: 3/5 in all major motor groups in right lower extremity. 4/5 in all major muscle groups in left lower extremity. Neurovascular: Radial pulse intact, 2+ bilaterally. Cap refill under 3 seconds in digits of upper extremities. Special test: Negative clonus bilaterally. Negative Leigh bilaterally. Negative Homans bilaterally. - Labs CBC & Chem 7: 10/17/24 12:39 10/17/24 12:39 Assessment and Plan Assessment: 1. Right lower extremity radiculopathy; low back pain Plan: 1. Right lower extremity radiculopathy; low back pain -CT scan results from [facility] on 10/15/2024 revealed degenerative disc disease and disc herniations at L4-L5 and L5-S1. MRI of the lumbar spine performed yesterday does reveal right-sided disc herniation at L4-5 there is also resulting mild central canal stenosis and mild right-sided neuroforaminal sten osis. At L5-S1 there is some mild central canal stenosis as well as left-sided paracentral disc protrusion. I discussed the findings of the image with the patient at bedside this morning. Patient would like to move forward with surgery at this time. I discussed the findings of the exam and imaging with my attending, Dr. Tomas. We are recommending surgical intervention in the form of L4-L5 microdiscectomy. Patient to be n.p.o. at midnight tonight. Surgery has been scheduled for 9 AM tomorrow, 10/20/2024. Pain medication as needed. Weightbearing as tolerated with walker. Appreciate PT/OT recommendations. We will continue to follow patient during stay in the hospital. 2. Appreciate medical management 3. Pain management -[place]; Lyrica 4. GI prophylaxis - senna 5. DVT prophylaxis -mechanical 6. PT/OT -weightbearing as tolerated with walker 7. Encourage incentive spirometer use Time with Patient: Less than 30
--- NOTE | 2024-10-19 16:04 | P.PN ---
Subjective Progress Note Date: 10/19/24 Hospital Course: Patient is a pleasant 44-year-old female with a past medical history of hypertension, insulin resistance, chronic back pain with left lower extremity neuropathy and decreased sensation. She presented to the emergency department with acute on chronic lower back pain. Patient reports pain typically radiates down the left leg with decreased sensation but states she is having right lower extremity sciatica and uncontrolled 10 out of 10 back pain despite being on Scobey tens, Motrin 800, Lyrica, and Valium. She denies having any saddlebag anesthesia, denies having any involuntary loss of bowel or bladder, and denies having any new or worsening numbness in lower extremities. On arrival to our facility, patient underwent evaluation in the emergency department. Vital signs upon arrival show blood pressure 148/90, heart rate 85, respiratory rate 16, temp 98.2 F, and SpO2 of 98% on room air. EKG was completed showing normal sinus rhythm at 95 bpm with no noted T wave or ST abnormality showing no signs of acute ischemia upon personal review and interpretation. Labs completed and reviewed. CBC showing leukocytosis with WBC count of 11.22. Coagulation profile showing a low PTT of 20.1 otherwise normal findings. BMP showing mild p rerenal azotemia with BUN of 19 otherwise normal findings. Blood glucose 86. Liver profile unremarkable. Per documentation in chart patient was seen at [facility] on 10/15/[address] lumbar spine revealing degenerative disc disease with disc herniations L4-L5 and L5-S1. Patient was admitted under orthospine surgery team and we were consulted for medical management throughout hospitalization. Serum hCG negative. Physical exam: Patient was seen and fully evaluated at bedside this morning. Patient continues to report uncontrolled pain and discomfort. She expresses frustration over delay of care stating she should have had surgery yesterday and had to wait for an MRI and now is expected to await for surgery until tomorrow. Patient requested patient sales representative malt liquors to be sent up during her conversation with surgery team later today. Pt stated she is not coming back for multiple surgeries in the future, she is coming in for 1 surgery and wants everything done at this time and is tired of waiting. Pt states she is not letting anyone tell her to try physical therapy again as she has already went that route and it does not work. Vital signs reviewed and stable. General: Nontoxic, no distress and appears stated age. Derm: Skin warm and dry, normal coloration for ethnicity. Head: Atraumatic, normocephalic and symmetric. Eyes: EOM's intact, no lid lag, and anicteric sclera Mouth: no lip lesions, mucus membranes moist Cardiovascular: regular rate and rhythm with normal S1S2, no murmur, positive posterior tibial pulses bilaterally, and cap refill < 2 seconds. Lungs: Respirations even, regular, and unlabored on room air. Lungs CTA bilaterally, no rhonchi, no rales, no wheezing, and no accessory muscle usage. Abdominal: soft, nontender to palpation, no guarding, no appreciable organomegaly Ext: No gross muscle atrophy, no edema, no contractures. Movement and sensation intact. Patient does report decreased sensation in left lower extremity but reports at baseline. Neuro: Speech clear, face symmetrical and CN II-XII grossly intact with no noted focal neuro deficits Psych: Alert and oriented to person, place, time, and situation. Agitated affect Assessment and Plan of Care: Acute on chronic lower back pain Herniated disc L4-L5 and L5-S1 Degenerative disc disease - Patient admitted under orthospine surgery team, possible plans for surgical intervention tomorrow - Continue symptomatic care and pain management with Lyrica 100 mg 4 times daily, Valium 5 mg every 8 hours as needed for muscle spasms, Tylenol 650 mg every 6 hours as needed for mild to moderate pain, Scobey 10/325 mg tablets every 6 hours as needed for moderate to severe pain, and Dilaudid 1 mg every 3 hours as needed for severe uncontrolled pain. - Maintain fall precautions. - MRI lumbar spine revealed redemonstration of L4-L5 and L5-S1 disc herniations with L4-L5 disc herniation abutting the exiting right S1 nerve root and thickening of the cauda equina with exiting nerve root not enhanced. Hypertension -Monitor vital signs and continue daily medication regimen with amlodipine 10 mg daily and losartan 100 mg daily Insulin resistance, type II vbr-vqhtzqu-[id number] diabetes mellitus -Hold metformin and place patient on glycemic protocol with Humalog sliding scale. ADHD -Continue Vyvanse 40 mg daily. Data and imaging reviewed: - Vital signs reviewed. Blood pressure 127/82, heart rate 67, respiratory rate 17, temp 98.2 F, and SpO2 of 97% on room air. - MRI lumbar spine revealed redemonstration of L4-L5 and L5-S1 disc herniations with L4-L5 disc herniation abutting the exiting right S1 nerve root and thickening of the cauda equina with exiting nerve root not enhanced. Thank you for allowing us to participate in the care of this pleasant patient. Do not hesitate to contact us with questions. Someone can be reached from the [facility] hospitalist group all hours of the day at [phone] or via perfect serve. Patient was seen independently by Nurse Practitioner. This document was prepared using [employer] dictation software. Please allow for errors in logistics operations manager while rare they do occur. Andrew Angeles NP rendered care for this patient independently, reviewed the findings and plan as documented in the note above and agree with plan. I did not physically speak with or examine the patient on this date. Objective - Vital Signs Vital signs: Vital Signs Temp 98.2 F 10/19/24 07:06 Pulse 67 10/19/24 07:06 Resp 17 10/19/24 07:06 BP 127/82 10/19/24 07:06 Pulse Ox 97 10/19/24 07:06 FiO2 Intake & Output 10/18/24 10/19/24 10/19/24 18:59 06:59 18:59 Other: Voiding Method Toilet # Voids 2 - Labs CBC & Chem 7: 10/17/24 12:39 10/17/24 12:39
--- NOTE | 2024-10-20 08:11 | P.PN ---
Progress Note - Text Progress Note Date: 10/20/24 [facility] PROVIDER: DIANA October 20, 2024 7:50?AM SPINE SURGERY CLINICAL AND RISK REVIEW CRUZITO SALINAS is a 44 YO FEMALE presenting for evaluation of RLE PAIN, WEAKNESS, LOW BACK PAIN REFRACTORY TO CONSERVATIVE MEASURES . It was my pleasure to have seen and examined CRUZITO SALINAS . SHE WAS SEEN IN OFFICE AND WAS IN SO MUCH PAIN SHE WAS REFERRED TO THE ED FOR EVALUATION. SHE HAD BEEN TO THE ED SEVERAL TIMES BEFORE THIS INCLUDING AT [facility], [facility] AND [facility]. SHE WAS SENT HOME EACH TIME BUT NEVER GOT BETTER. SHE DENIES ANY BOWEL OR BLADDER ISSUES AT THIS TIME. SHE DENIES ANY F/C/SOB/CP. In our visit today we have had a chance to go over subjective complaints, physical examination findings and treatments including the natural course history without intervention and various interventional options. The patient's imaging demonstrates the following findings: LARGE L4-5 HNP WITH SEVERE RIGHT FORAMINAL AND LATERAL RECESS STENOSIS L5-S1 HNP, SMALLER, BUT STILL CAUSING STENOSIS. THIS IS SOMEWHAT IMPROVED FROM PREVIOUS IMAGING IN . SEVERE SPONDYLOSIS OF THE L5-S1 REGION WITH COMPLETE DISC COLLAPSE AND HEIGHT LOSS WITH SEVERE FACET ARTHROSIS AND B/L FORAMINAL STENOSIS. BOGGY FACETS AT L4-5 AND L5-S1 WITH SPONDYLOTIC CHANGES NOTED. NO FRACTURES OR LESIONS NOTED. On a physical exam,CRUZITO SALINAS demonstrates the following findings: +SLR ON THE RIGHT +TENSIONING SIGNS PAIN WITH MOVEMENT, AMBULATION OR ANY ACTIVITY INABILITY TO DO ADLS SECONDARY TO PAIN AND WEAKNESS WELL DEBILITY I have explained to the patient that as their condition progresses it will cause further neurological deficits and eventual paralysis. Based on the patients imaging, physical exam, and the rapid progression and disabling nature of their symptoms, at this time I recommend surgery in the form of a: L4-5 RIGHT LAMINOFORAMINOTOMY WITH MICRODISCECOMTY AND L5-S1 MINIMALLY INVASIVE POSTEROLATERAL AND INTERBODY FUSION. . I discussed the risk and benefits of this procedure at length with CRUZITO SALINAS . The patient has agreed to consider pursuing the procedure above mentioned. Prior to surgery, they should follow up with her PCP (Cardio, ID, IM etc) for clearance. Questions were invited and answered, and the patient wishes to proceed as outlined below. Currently, I am recommending: L4-5 RIGHT LAMINOFORAMINOTOMY WITH MICRODISCECOMTY AND L5-S1 MINIMALLY INVASIVE POSTEROLATERAL AND INTERBODY FUSION. Obtain appropriate presurgical workup and clearances as discussed with the patient. Review of surgical risks and benefits as well as an educational packet on the proposed surgical procedure. Risks: All surgical procedures come with inherent risks, including those related to positioning, anesthesia, intraoperative findings, and postoperative complications. It is important to understand that surgery does not come with any guarantee of a successful outcome as complications and adverse events are always possible. The patient was given a handout in the office today discussing the surgical procedure and risks associated with the intervention, both of which were discussed with the patient. These risks include but are not limited to the following: Experiencing same, different or even worse symptoms in back, neck, arms, or legs compared to before surgery. Requiring further surgery or other forms of treatment presently or at some time in the future at same or other levels of the intended spine surgery. On an extreme but fortunately relatively rare basis severe complications such as blindness, stroke, heart attack, temporary and/or permanent nerve injury, paralysis, coma, or may occur, sometimes without known e xplanation. Surgical complications may include but are not limited to risk of infection, fluid accumulation in the surgical dissection site, including a seroma or hematoma, that requires additional surgery, wound drainage, bleeding, new numbness or weakness, vision changes/loss, spinal fluid leakage, non-healing and/or infected incision, headaches, difficulty or inability to swallow, hoarseness, hemopneumothorax, pneumothorax, impotence, retrograde ejaculation, vaginal dryness; injury to nerves, spinal cord, blood vessels, lymphatics or other vital organs (i.e., bowel injury, injury to the great vessels); heterotopic bone formation; complications related to the hardware such as screws, rods, cages including misplaced hardware, device failure, instrumentation at the wrong spine level, hardware fracture/breakage, or hardware loosening; vertebral failure of the spinal column above or below the newly placed hardware; retained surgical instrumentations or devices and the need for further surgery. Medical risks of the planned spine surgery include but are not limited to generalized Infections to the whole body or local areas outside of the surgical site (sepsis), heart attack, bleeding, anaphylaxis, meningitis, seizure, epilepsy, hearing loss, burn erickson, laceration of the head or other areas of the body, bruising, hypersensitivity of the skin, bladder over distension; allergic reaction; shoulder injury related to positioning; fat, blood and air clots to other areas of the body like heart, lungs, brain; failure of internal organs such as lungs, kidneys, liver and excessive bleeding. If blood transfusions are necessary, note that transfusions may cause intolerance reactions such as anaphylaxis or other complex reactions. Despite best efforts, the results of spine surgery might not heal in terms of bone, soft tissues such as skin, fascia, ligaments, and joints. Additionally, in order to achieve best possible results, spine surgery may be carried out beyond the initially planned levels and involve decompression, fusion including insertion of hardware at levels other than the original intended area of surgical interest change some portions of the procedure in order to ensure the best possible outcomes. With spine surgery and spinal fusion, there are different off label uses of instrumentation (devices, implants and hardware) as well as biological substances (bone morphogenic proteins, demineralized bone matrix) as well as using extra bone from allograft sources (i.e. cadaver bone) or autograft (iliac crest bone, ribs, or the spine itself). The patient has been given information about these practices and their inherent risks and benefits. The patient has had a chance to review all the listed information, has been given print outs detailing this information, and has had all his/her questions answered to their satisfaction. It was my pleasure to have seen and examined CRUZITO SALINAS . In our visit today we have had a chance to go over my understanding of our patient's current condition, the natural course history without intervention and various interventional options. Questions were invited and answered, and the patient wishes to proceed as outlined above. I have seen and examined the patient for 25 minutes and we have spent more than 50% of the time in repeat and detailed counseling about the patient's condition, its natural course history without and as much as can be predicted with surgery and re-review of various surgical treatment options. In conclusion, CRUZITO SALINAS and their family requested we proceed with the above suggested surgery and are willing to accept risks and limitations of the suggested surgery as the nature of the disease process and our best attempts at treatment for the condition. In our visit today the patient and I have had a chance to go over my understanding of their current condition, the natural course history without intervention and various interventional options. Questions were invited and answ ered, and the patient wishes to proceed as outlined above. I will be sure to keep you updated after the patient returns here for further follow-up. Thank you again for your referral. Please do not hesitate to contact me if you have any further questions. Signed and authenticated by: October 20, 2024 8:30?AM DO Nellie Hickey [facility]im[facility] Sp[facility] [address] [facility], [address] [address] This document is confidential, intended only for the named recipient(s) and may contain information that is privileged or exempt from disclosure under applicable law. If you are not the intended recipient(s), you are notified that the dissemination, distribution or copying of this information is strictly prohibited. If you received this message in error, please notify the sender then delete this message.
[2024-10-20 09:13] LABS: Glucose,Whole Blood 75 mg/dL (70-110)
[2024-10-20] MEDS: IV FLUID CONTINUATION 1,000 ML IV ONE (09:16)
[2024-10-20] MEDS: BUPIVACAINE (PF) 0.5% 30 ML VIAL SQ ONE ×2 (09:54)
[2024-10-20] MEDS: LIDOCAINE 2%-EPI 1:100,000 20 ML VIAL SQ ONE ×2 (09:54)
[2024-10-20] MEDS: THROMBIN (BOVINE) 5,000 UNIT VIAL TOPICAL ONE (10:26)
[2024-10-20] MEDS: LACTATED RINGERS 1,000 ML IV ONE (10:59)
[2024-10-20 11:00] LABS: ALT 18 U/L (8-44); AST 15 U/L (13-35); Albumin 3.8 g/dL (3.8-4.9); Albumin/Globulin Ratio 1.52 Ratio (1.60-3.17); Alkaline Phosphatase 41 U/L (41-126); BUN/Creat Ratio 27.17 Ratio (12.00-20.00); Blood Urea Nitrogen 16.3 mg/dL (9.0-27.0); Carbon Dioxide 25.2 mmol/L (21.6-31.8); Chloride 104 mmol/L (96-109); Globulin 2.5 g/dL (1.6-3.3); Glucose 83 mg/dL (70-110); Magnesium 2.1 mg/dL (1.5-2.4); Potassium 4.8 mmol/L (3.5-5.5); Sodium 139 mmol/L (135-145); Total Bilirubin <0.2 mg/dL (0.3-1.2); Total Protein 6.3 g/dL (6.2-8.2)
[2024-10-20] MEDS: ceFAZolin 1,000 MG in SODIUM CHLORIDE 0.9% 1,000 ML IRRIGATION ONE (11:00)
--- NOTE | 2024-10-20 11:42 | P.OP ---
Date of Procedure: 10/20/24 Preoperative Diagnosis: 1. L4-5 HNP WITH STENOSIS 2. L5-S1 HNP WITH DDD AND STENOSIS 3. RLE RADICULOPATHY WITH TENSIONING 4. LOW BACK PAIN Postoperative Diagnosis: 1. L4-5 HNP WITH STENOSIS 2. L5-S1 HNP WITH DDD AND STENOSIS 3. RLE RADICULOPATHY WITH TENSIONING 4. LOW BACK PAIN Procedure(s) Performed: 1. L5-S1 POSTEROLATERAL AND INTERBODY FUSION 2. POSTEROLATERAL INSTRUMENTATION L5-S1 3. L4-5 LAMINOFORAMINOTOMY WITH MICRODISCECOMTY (59) 4. L5-S1 LAMINECTOMY, FACETECTOMY AND FORAMINOTOMY FOR DECOMPRESSION AND CAGE PLACEMENT 5. INSERTION OF BOMECHANICAL DEVICE L5-S1, CAGE x1 USE OF IONM ALL SCREWS TESTING > 18 mA NOTES: MIS RIGHT L4-5 DISC HARD AND OSTEOPHYTE L5-S1 SCLEROTIC Anesthesia: KRISTIAN Surgeon: Geronimo Tomas Decorating And Assembly Supervisor #1: Daniel Whitfield (was present and assisted for the entire case from positioning to dressing placement) Estimated Blood Loss (ml): 75 IV fluids (ml): 1,200 Urine output (ml): 200 Pathology: none sent Condition: stable Disposition: PACU Indications for Procedure: CRUZITO SALINAS is a 44 YO FEMALE presenting for evaluation of RLE PAIN, WEAKNESS, LOW BACK PAIN REFRACTORY TO CONSERVATIVE MEASURES . It was my pleasure to have seen and examined CRUZITO SALINAS . SHE WAS SEEN IN OFFICE AND WAS IN SO MUCH PAIN SHE WAS REFERRED TO THE ED FOR EVALUATION. SHE HAD BEEN TO THE ED SEVERAL TIMES BEFORE THIS INCLUDING AT [facility] AND [facility]. SHE WAS SENT HOME EACH TIME BUT NEVER GOT BETTER. SHE DENIES ANY BOWEL OR BLADDER ISSUES AT THIS TIME. SHE DENIES ANY F/C/SOB/CP. In our visit today we have had a chance to go over subjective complaints, physical examination findings and treatments including the natural course history without intervention and various interventional options. The patient's imaging demonstrates the following findings: LARGE L4-5 HNP WITH SEVERE RIGHT FORAMINAL AND LATERAL RECESS STENOSIS L5-S1 HNP, SMALLER, BUT STILL CAUSING STENOSIS. THIS IS SOMEWHAT IMPROVED FROM PREVIOUS IMAGING IN . SEVERE SPONDYLOSIS OF THE L5-S1 REGION WITH COMPLETE DISC COLLAPSE AND HEIGHT LOSS WITH SEVERE FACET ARTHROSIS AND B/L FORAMINAL STENOSIS. BOGGY FACETS AT L4-5 AND L5-S1 WITH SPONDYLOTIC CHANGES NOTED. NO FRACTURES OR LESIONS NOTED. On a physical exam,CRUZITO SALINAS demonstrates the following findings: +SLR ON THE RIGHT +TENSIONING SIGNS PAIN WITH MOVEMENT, AMBULATION OR ANY ACTIVITY INABILITY TO DO ADLS SECONDARY TO PAIN AND WEAKNESS WELL DEBILITY I have explained to the patient that as their condition progresses it will cause further neurological deficits and eventual paralysis. Based on the patients imaging, physical exam, and the rapid progression and disabling nature of their symptoms, at this time I recommend surgery in the form of a: L4-5 RIGHT LAMINOFORAMINOTOMY WITH MICRODISCECOMTY AND L5-S1 MINIMALLY INVASIVE POSTEROLATERAL AND INTERBODY FUSION. . I discussed the risk and benefits of this procedure at length with CRUZITO SALINAS . The patient has agreed to consider pursuing the procedure above mentioned. Prior to surgery, they should follow up with her PCP (Cardio, ID, IM etc) for clearance. Questions were invited and answered, and the patient wishes to proceed as outlined below. Currently, I am recommending: L4-5 RIGHT LAMINOFORAMINOTOMY WITH MICRODISCECOMTY AND L5-S1 MINIMALLY INVASIVE POSTEROLATERAL AND INTERBODY FUSION. Description of Procedure: L5-S1 MIS TLIF The patient was seen and examined in the preoperative area. All preoperative protocols were followed. Informed consent was obtained, risks and benefits of the procedure were discussed at length. Risks including bleeding infection damage to the surrounding tissue and risk of reoperation were discussed with the patient. Risk of anesthesia up to and including was discussed with the patient. These are outlined in the risk review. They were willing to accept these risks and all the risks of surgery. The patient was given a weight-based dose of antibiotics in the form of 2 g Ancef. The patient was seen and evaluated by the anesthesia team who deemed them fit for surgery. The site was marked, the patient was willing to proceed with the procedure. The patient was transferred to the operative suite by the Department of anesthesia. They were then drifted off to sleep by the department anesthesia and GETA was performed. The patient tolerated this well. Goldberg catheter was placed by nursing staff, a-traumatically. Once confirmation of lines and ventilation the patient was transferred to a prone José Miguel table very carefully. All bony prominences including wrists, elbows, axilla, chest, hips, and thighs, and feet were padded very well. Special attention was paid to the genitalia, and these were padded accordingly. SCDs were placed on bilateral lower extremities and were connected. Arms were well padded and placed on arm boards up and out in the 90/90 position. Once in position, again we confirmed good ventilation capabilities and that lines were running appropriately. The patients Lumbar spine was then exposed. 1010s were placed outlining the incision site. Standard alcohol was used to clean the incision site and allowed to dry. C-arm was used to needle localize the pedicles at L5-S1 and bio-kristian the patient and confirm level for incision which was marked with a skin marker. Operative briefing was performed with all teams and everyone in agreement to proceed. The patient was then prepped and draped in a normal sterile fashion. Timeout was then performed, and all parties agreed with the procedure to be performed. C arm was then used to target pedicles bilaterally at L5-S1. Jamshidi was used and bi-planar fluoroscopy was used to access L5 pedicles. Once accessed wires were placed in their void. This was repeated at S1 bilaterally. Skin incision was then made along these wires and a perfect scalpel was used over the wire to create a path and measure screw length. Screws were then placed over wires on the contralateral side. Once the screw was at the back of the body wire was removed. The screws were confirmed to be in good position on AP and lateral. We then tested screws and they all tested above 20 mA. L4-5 was then targeted with biplanar fluroscopy for placement of MIS tubular retrator system. This was placed at L4-5 interspace. Xra confirmed. Limited myomectomy was then done and high speed shaka was then used to performe laminoforaminotomy along with kerrison rongure and curettes. Once good decompression was done at this point the disc space was identified and accessed and there was disc osteophyte complex along with disc herniation which was removed. Once removed meticulous hemostasis was done and the area was irrigated. Wound bed was inspected and there was good decompression and no issues. Tubular retractor system was then removed and replaced at L5-S1. Attention was then turned to interbody fusion at L5-S1. The tubular retractor system was placed at the interspace of L5-S1 using a biplanar c arm. Once in position and dilated up to 26mm tube it was locked to the bed and confirmed in good position. A microscope was then brought in for visualization. Limited myomectomy was performed and laminectomy, complete facetectomy and foraminotomy performed at L5-S1 using high speed shaka and Kerrison rongure. The ligamentum was removed and the dural sac decompressed. Exiting and traversing roots visualized and decompressed. Neural elements were then protected, and disc space accessed with an osteotome. Sequential shaving then done under lateral imaging and complete discectomy performed using irene, pituitary and curette. Once good bleeding endplates accomplished and good height anglican with trials, a combination of autograft, allograft and synthetic placed anterior in the disc space. The cage was then selected and impacted into place under lateral imaging. The cage was then expanded restoring height, lordosis and alignment. The cage was backfilled with bone graft through a funnel. The an/ssn 2 4 operator was removed and the area inspected. Good cage placement, stable cage and no injuries. The area was irrigated copiously, and meticulous hemostasis achieved. The tubular retractor was then removed under direct visualization. Screws were then selected and placed over the previously placed wires on the ipsilateral side. This was done in the fashion described above. Screws were then tested, and all tested above 20 mA. Shells were then placed on the tabs. Abdi length was then measured, and rods selected. They were then placed through the MIS tabs, subfascial. These were then locked into place with set screws and final tightened. Abdi holders removed and images taken showing good placement of rods, good lordosis and anglican of height. Tabs were broken off. Wounds were then copiously irrigated with NSS. Shaka used for TP decortication and mixture of MagnatOs, allograft and autograft packed posterolateral. Facia was then closed with 0 Vircyl on a Scorpion suture passer for MIS closure. Deep subq closed with 0 Vicryl. Superficial subq closed with 2-0 Vicryl and skin with rd. Wound edges approximated very well. The wound was then cleaned with alcohol and dried. Wounds dressed in Optifoam dressings. The patient was then transferred off the table back to their hospital bed a- traumatically. They were extubated by the department of anesthesia. They were then transferred to PACU in stable condition having tolerated the procedure with no complications.
[2024-10-20] MEDS ORDERED: HYDROcodone/APAP 5-325MG 1 EACH TAB PO PRN (11:59)
[2024-10-20] MEDS ORDERED: HYDROmorphone 1 MG/ML 1 ML SYRINGE IVP PRN (12:00)
[2024-10-20] MEDS ORDERED: CYCLOBENZAPRINE 5 MG TAB PO PRN (12:00)
[2024-10-20] MEDS ORDERED: SENNOSIDES-DOCUSATE SODIUM 1 EACH TAB PO PRN (12:00)
[2024-10-20] MEDS ORDERED: MAG HYDROX/AL HYDROX/SIMETH 30 ML CUP PO PRN (12:00)
[2024-10-20] MEDS: TRANEXAMIC ACID 1,000 MG in SODIUM CHLORIDE 0.9% 100 ML IVPB ONE ×2 (12:13→12:14)
--- NOTE | 2024-10-20 12:15 | FL ---
EXAMINATION TYPE: FL guidance operating room, XR lumbar spine 2 or 3V DATE OF EXAM: 10/20/2024 11:39 AM COMPARISON: Pre Operative Images if available both CT/MRI or plain film CLINICAL INDICATION: Female, 44 years old with history of L4-5 MICRODISCECTOMY @0900; TECHNIQUE: FL guidance operating room, XR lumbar spine 2 or 3V, multiple fluoroscopic images provided for procedure. DAP: 15.42. mGym2 Gycm2 uGym2 cGycm2 or equivalent. FINDINGS: Fluoroscopic images during surgery demonstrates demonstrate hardware in appropriate position. Hardwar e appears intact. No immediate complication identified. IMPRESSION: 1. Report was generated for administrative purposes only. 2. Please see the operative/procedural note for further details. [facility], , 10/20/2024 12:13 PM
[2024-10-20] MEDS: HYDROmorphone 0.5 MG/0.5 ML SYRINGE IVP PRN ×2 (12:25→12:35)
[2024-10-20] MEDS: HYDROcodone/APAP 10-325MG 1 EACH TAB PO PRN (13:03)
[2024-10-20] MEDS: ceFAZolin 2 GM in DEXTROSE 5% IN WATER 50 ML IVPB SCH (15:18)
[2024-10-20] MEDS: GABAPENTIN 300 MG CAP PO SCH (15:18)
--- NOTE | 2024-10-20 17:29 | P.PN ---
Subjective Progress Note Date: 10/20/24 Hospital Course: Patient is a pleasant 44-year-old female with a past medical history of hypertension, insulin resistance, chronic back pain with left lower extremity neuropathy and decreased sensation. She presented to the emergency department with acute on chronic lower back pain. Patient reports pain typically radiates down the left leg with decreased sensation but states she is having right lower extremity sciatica and uncontrolled 10 out of 10 back pain despite being on Salisbury tens, Motrin 800, Lyrica, and Valium. She denies having any saddlebag anesthesia, denies having any involuntary loss of bowel or bladder, and denies having any new or worsening numbness in lower extremities. On arrival to our facility, patient underwent evaluation in the emergency department. Vital signs upon arrival show blood pressure 148/90, heart rate 85, respiratory rate 16, temp 98.2 F, and SpO2 of 98% on room air. EKG was completed showing normal sinus rhythm at 95 bpm with no noted T wave or ST abnormality showing no signs of acute ischemia upon personal review and interpretation. Labs completed and reviewed. CBC showing leukocytosis with WBC count of 11.22. Coagulation profile showing a low PTT of 20.1 otherwise normal findings. BMP showing mild p rerenal azotemia with BUN of 19 otherwise normal findings. Blood glucose 86. Liver profile unremarkable. Per documentation in chart patient was seen at [facility] on 10/15/[address] lumbar spine revealing degenerative disc disease with disc herniations L4-L5 and L5-S1. Patient was admitted under orthospine surgery team and we were consulted for medical management throughout hospitalization. Serum hCG negative.MRI lumbar spine revealed redemonstration of L4-L5 and L5-S1 disc herniations with L4-L5 disc herniation abutting the exiting right S1 nerve root and thickening of the cauda equina with exiting nerve root not enhanced. Physical exam: Patient was seen and fully evaluated at bedside shortly after returning from surgery. She currently reports tightness throughout lower back but reports pain is currently controlled. She denies having any headache, lightheadedness, dizziness, chest pain, palpitations, shortness of breath, or experiencing any numbness/tingling/weakness in her extremities. Patient reports currently her main complaint is that she is starving and is currently awaiting dinner tray to be delivered. Vital signs reviewed and stable. General: Nontoxic, no distress and appears stated age. Derm: Skin warm and dry, normal coloration for ethnicity. Head: Atraumatic, normocephalic and symmetric. Eyes: EOM's intact, no lid lag, and anicteric sclera Mouth: no lip lesions, mucus membranes moist Cardiovascular: regular rate and rhythm with normal S1S2, no murmur, positive posterior tibial pulses bilaterally, and cap refill < 2 seconds. Lungs: Respirations even, regular, and unlabored on room air. Lungs CTA bilaterally, no rhonchi, no rales, no wheezing, and no accessory muscle usage. Abdominal: soft, nontender to palpation, no guarding, no appreciable organomegaly Ext: No gross muscle atrophy, no edema, no contractures. Movement and sensation intact. Patient does report decreased sensation in left lower extremity but reports at baseline. Neuro: Speech clear, face symmetrical and CN II-XII grossly intact with no noted focal neuro deficits Psych: Alert and oriented to person, place, time, and situation. Agitated affect Assessment and Plan of Care: Status post L5-S1 posterior lateral interbody fusion with posterior lateral instrumentation and L4-L5 laminoforaminotomy with microdiscectomy, L5-S1 laminectomy, facetectomy, and foraminotomy for decompression and cage placement. Acute on chronic lower back pain Degenerative disc disease - Postoperative management per primary admitting orthopedic surgery team including DVT prophylaxis, pain management, wound/dressing/drain management, advancement of activity, and PT/OT. - Continue symptomatic care and pain management with Lyrica 100 mg 4 times daily, Valium 5 mg every 8 hours as needed for muscle spasms, Tylenol 650 mg every 6 hours as needed for mild to moderate pain, Salisbury 10/325 mg tablets every 6 hours as needed for moderate to severe pain, and Dilaudid 1 mg every 3 hours as needed for severe uncontrolled pain. - Maintain fall precautions. Hypertension -Monitor vital signs and continue daily medication regimen with amlodipine 10 mg daily and losartan 100 mg daily Insulin resistance, type II [id number] diabetes mellitus -Hold metformin and place patient on glycemic protocol with Humalog sliding scale. ADHD -Continue Vyvanse 40 mg daily. Data and imaging reviewed: - Vital signs reviewed. Blood pressure 130/86, heart rate 90, respiratory rate 16, temp 97.8 F, and SpO2 of 97% on room air. - Morning labs reviewed. BMP unremarkable. Blood glucose 83. Magnesium 2.1. Liver profile normal findings. Thank you for allowing us to participate in the care of this pleasant patient. Do not hesitate to contact us with questions. Someone can be reached from the [facility] hospitalist group all hours of the day at [phone] or via [employer]. Patient was seen independently by Nurse Practitioner. This document was prepared using LOANZ dictation software. Please allow for errors in pharmacy coordinator while rare they do occur. Andrew Angeles NP rendered care for this patient independently, reviewed the findings and plan as documented in the note above and agree with plan. I did not physically speak with or examine the patient on this date. Objective - Vital Signs Vital signs: Vital Signs Temp 98.0 F 10/20/24 07:21 Pulse 86 10/20/24 09:05 Resp 16 10/20/24 09:05 BP 143/86 10/20/24 09:05 Pulse Ox 98 10/20/24 09:05 FiO2 Intake & Output 10/19/24 10/20/24 10/20/24 18:59 06:59 18:59 Intake Total 650 540 Balance 650 540 Intake: Oral 650 540 Other: Voiding Method Toilet # Voids 3 - Labs CBC & Chem 7: 10/17/24 12:39 10/20/24 04:17
--- NOTE | 2024-10-20 18:59 | CT ---
EXAMINATION TYPE: CT lumbar spine wo con DATE OF EXAM: 10/20/2024 6:25 PM COMPARISON: Radiograph, CT. CLINICAL INDICATION: Female, 44 years old with history of s/p L4-5 microdisc; L5-S1 PLIF; PHH, post-o p TECHNIQUE: Multiple axial images were obtained from the midportion of T11 through the sacroiliac khanh nts. Soft tissue and bone windows in coronal and sagittal planes were obtained and reviewed. Contrast used: mL of , (None, if empty). Oral contrast used: (None, if empty). CT DLP: 990.6 mGycm, Automated exposure control for dose reduction was used. FINDINGS: Postsurgical changes to the lumbar spine with fixation hardware at L5 and S1. Discectomy at L5-S1. H ardware limits evaluation at these levels. Hardware appears intact. No evidence of fracture. Postsurgical changes in the soft tissues with foci of gas present. Posterior back skin rd are pr esent. The gallbladder is normal. IMPRESSION: Postsurgical changes without evidence of immediate post operative complication. [facility], , 10/20/2024 6:57 PM
--- NOTE | 2024-10-21 07:29 | P.PN ---
Subjective Progress Note Date: 10/21/24 Principal diagnosis: Right lower extremity radiculopathy; low back pain Patient was seen at bedside this morning sitting up in chair with postoperative dressing in place over lumbar spine as well as ice packs in place over low back. Patient says she has urinated since surgery yesterday without issue. Patient says she has also been up walking little bit using walker to aid in ambulation. Patient mentions she has having a lot of pain at this time mostly in the low back and the buttocks. Patient does note a change in regards to symptoms especially down the right lower extremity she is not having the pain down the back of the leg all the way to the foot like she was prior to surgery. Patient also believes she does notice improvement in regards to sensation in the left lower extremity. Patient says she is looking forward to working with therapy later today. Patient denies any other issues at this time. Objective - Vital Signs Vital signs: Vital Signs Temp 98.1 F 10/21/24 00:05 Pulse 89 10/21/24 00:05 Resp 18 10/21/24 00:05 BP 118/72 10/21/24 00:05 Pulse Ox 95 10/21/24 00:05 FiO2 Intake & Output 10/20/24 10/21/24 10/21/24 18:59 06:59 18:59 Intake Total 2171 360 Output Total 1675 Balance 496 360 Intake: IV 1451 Oral 720 360 Output: Urine 1600 Uretheral (Goldberg) 900 Estimated Blood Loss 75 Other: Voiding Method Toilet # Voids 4 - Exam inspection: Negative for any open fractures, significant erythema/ecchymosis/open wounds. Sensation: Sensation is altered/diminished throughout the left lower extremity and right lower extremity on exam. Palpation: Moderate tenderness to palpation on the right lower back and right SI joint on exam. Range of motion: Very limited range of motion on the right hip and knee in flexion extension on exam due to referred pain and stiffness in the right side lower back. Patient is able to dorsi and plantarflex right ankle on exam. Patient is able to flex and extend left hip left knee and dorsi and plantarflex left ankle on exam. Motor: 4-/5 in all major motor groups in right lower extremity. 4/5 in all major muscle groups in left lower extremity. Neurovascular: Radial pulse intact, 2+ bilaterally. Cap refill under 3 seconds in digits of upper extremities. Special test: Negative clonus bilaterally. Negative Leigh bilaterally. Negative Homans bilaterally. - Labs CBC & Chem 7: 10/17/24 12:39 10/20/24 04:17 Labs: Abnormal Lab Results - Last 24 Hours (Table) 10/20/24 Range/Units 04:17 BUN/Creatinine Ratio 27.17 H (12.00-20.00) Ratio Total Bilirubin <0.2 L (0.3-1.2) mg/dL Albumin/Globulin Ratio 1.52 L (1.60-3.17) Ratio Assessment and Plan Assessment: 1. Right lower extremity radiculopathy; low back pain - Postop day 1 status post right-sided L4-5 microdiscectomy and L5-S1 posterior lateral interbody fusion Plan: 1. Right lower extremity radiculopathy; low back pain -L4-L5 right microdiscectomy and L5-S1 posterior lateral interbody fusion surgery performed yesterday, 10/20/2024. Patient stable at bedside this morning with dressing over lumbar spine. Dressing clean, dry, intact. Plan for dressing change tomorrow. Weightbearing as tolerated with walker and assistance as needed. Appreciate PT/OT recommendations. Continue with pain medication as needed. Postoperative CT scan does demonstrate hardware that is stable and intact. We will continue to follow patient during stay in the hospital. 2. Appreciate medical management 3. Pain management -Wolbach; gabapentin; Robaxin 4. GI prophylaxis - senna 5. DVT prophylaxis -mechanical 6. PT/OT -weightbearing as tolerated with walker 7. Encourage incentive spirometer use 8. Discharge planning -plan for discharge home with home care tomorrow versus Tuesday Time with Patient: Less than 30
[2024-10-21] MEDS: methocarbamoL 750 MG TAB PO SCH (08:18)
[2024-10-21 09:59] LABS: Basophils # (A) 0.06 X 10*3/uL (0.00-0.10); Basophils % (A) 0.4 %; Eosinophils # (A) 0.07 X 10*3/uL (0.04-0.35); Eosinophils % (A) 0.5 %; HGB 13.3 g/dL (12.0-15.0); Lymphocytes # (A) 1.25 X 10*3/uL (0.90-5.00); MCH 29.6 pg (27.0-32.0); MCHC 32.4 g/dL (32.0-37.0); MCV 91.1 FL (80.0-97.0); Mean Platelet Volume 10.1 FL (9.5-12.2); Monocytes # (A) 1.37 X 10*3/uL (0.20-1.00); Monocytes % (A) 9.8 %; NRBC Per 100 WBC 0 X 10*3/uL (0.00-0.01); Neutrophils # (A) 11.09 X 10*3/uL (1.80-7.70); Neutrophils % (A) 79.6 %; Platelet Count 273 X 10*3/uL (140-440); RDW 12.4 % (11.5-14.5); WBC 13.94 X 10*3/uL (4.50-10.00)
[2024-10-21 10:28] LABS: BUN/Creat Ratio 24.43 Ratio (12.00-20.00); Blood Urea Nitrogen 17.1 mg/dL (9.0-27.0); Carbon Dioxide 20.7 mmol/L (21.6-31.8); Chloride 102 mmol/L (96-109); Glucose 98 mg/dL (70-110); Potassium 4.7 mmol/L (3.5-5.5); Sodium 136 mmol/L (135-145)
--- NOTE | 2024-10-21 14:11 | P.PN ---
Subjective Progress Note Date: 10/21/24 Hospital Course: Patient is a pleasant 44-year-old female with a past medical history of hypertension, insulin resistance, chronic back pain with left lower extremity neuropathy and decreased sensation. She presented to the emergency department with acute on chronic lower back pain. Patient reports pain typically radiates down the left leg with decreased sensation but states she is having right lower extremity sciatica and uncontrolled 10 out of 10 back pain despite being on [place] tens, Motrin 800, Lyrica, and Valium. She denies having any saddlebag anesthesia, denies having any involuntary loss of bowel or bladder, and denies having any new or worsening numbness in lower extremities. On arrival to our facility, patient underwent evaluation in the emergency department. Vital signs upon arrival show blood pressure 148/90, heart rate 85, respiratory rate 16, temp 98.2 F, and SpO2 of 98% on room air. EKG was completed showing normal sinus rhythm at 95 bpm with no noted T wave or ST abnormality showing no signs of acute ischemia upon personal review and interpretation. Labs completed and reviewed. CBC showing leukocytosis with WBC count of 11.22. Coagulation profile showing a low PTT of 20.1 otherwise normal findings. BMP showing mild p rerenal azotemia with BUN of 19 otherwise normal findings. Blood glucose 86. Liver profile unremarkable. Per documentation in chart patient was seen at [facility] on 10/15/[address] lumbar spine revealing degenerative disc disease with disc herniations L4-L5 and L5-S1. Patient was admitted under orthospine surgery team and we were consulted for medical management throughout hospitalization. Serum hCG negative.MRI lumbar spine revealed redemonstration of L4-L5 and L5-S1 disc herniations with L4-L5 disc herniation abutting the exiting right S1 nerve root and thickening of the cauda equina with exiting nerve root not enhanced. On 10/20/2024 patient underwent L5-S1 posterior lateral interbody fusion with posterior lateral instrumentation and L4-L5 laminoforaminotomy with microdiscectomy, L5-S1 laminectomy, facetectomy, and foraminotomy for decompression and cage placement. Physical exam: Patient was seen and fully evaluated at bedside this morning. She is post op day 1. Pt was sleeping but easily awoken via verbal stimuli. Upon awakening patient tearful and reports uncontrolled and persistent back pain. She continues to deny having any numbness or tingling in her extremities, denies having any difficulties with urination. Reports passing flatus but denies bowel movement since surgery. Patient reports healthy appetite and denies having any nausea or vomiting. Vital signs reviewed and stable. General: Nontoxic, no distress and appears stated age. Derm: Skin warm and dry, normal coloration for ethnicity. Head: Atraumatic, normocephalic and symmetric. Eyes: EOM's intact, no lid lag, and anicteric sclera Mouth: no lip lesions, mucus membranes moist Cardiovascular: regular rate and rhythm with normal S1S2, no murmur, positive posterior tibial pulses bilaterally, and cap refill < 2 seconds. Lungs: Respirations even, regular, and unlabored on room air. Lungs CTA bilaterally, no rhonchi, no rales, no wheezing, and no accessory muscle usage. Abdominal: soft, nontender to palpation, no guarding, no appreciable organomegaly Ext: No gross muscle atrophy, no edema, no contractures. Movement and sensation intact. Patient does report decreased sensation in left lower extremity but reports at baseline. Neuro: Speech clear, face symmetrical and CN II-XII grossly intact with no noted focal neuro deficits Psych: Alert and oriented to person, place, time, and situation. Agitated affect Assessment and Plan of Care: Status post L5-S1 posterior lateral interbody fusion with posterior lateral instrumentation and L4-L5 laminoforaminotomy with microdiscectomy, L5-S1 laminectomy, facetectomy, and foraminotomy for decompression and cage placement. Acute on chronic lower back pain Degenerative disc disease - Postoperative management per primary admitting orthopedic surgery team including DVT prophylaxis, pain management, wound/dressing/drain management, advancement of activity, and PT/OT. - Continue symptomatic care and pain management with Lyrica 100 mg 4 times daily, Valium 5 mg every 8 hours as needed for muscle spasms, Tylenol 650 mg every 6 hours as needed for mild to moderate pain, [place] 10/325 mg tablets every 6 hours as needed for moderate to severe pain, and Dilaudid 1 mg every 3 hours as needed for severe uncontrolled pain. - Maintain fall precautions. - Currently DVT prophylaxis with BILLY hose and SCDs. Leukocytosis -Reactive secondary to surgical procedure. No signs of infection no need for further intervention at this time. Hypertension -Monitor vital signs and continue daily medication regimen with amlodipine 10 mg daily and losartan 100 mg daily Insulin resistance, type II ojh-ixujqzz-zenvklxdu diabetes mellitus -Hold metformin and continue patient on glycemic protocol with Humalog sliding scale. Patient has been refusing many blood glucose checks. ADHD -Continue Vyvanse 40 mg daily. Data and imaging reviewed: - Vital signs reviewed. Blood pressure mild for 74, 3, respiratory rate 16, temp 99.1 F, and SpO2 100% on room air - Morning labs reviewed. CBC showing mild leukocytosis with WBC count of 13.94. BMP showing mild high anion gap metabolic acidosis with chloride of 102, bicarb of 20.7, and anion gap of 13.30. Blood glucose was 98. Thank you for allowing us to participate in the care of this pleasant patient. Do not hesitate to contact us with questions. Someone can be reached from the [facility] hospitalist group all hours of the day at [phone] or via [employer]. Patient was seen independently by Nurse Practitioner. This document was prepared using [employer] dictation software. Please allow for errors in [employer] company while rare they do occur. Andrew Angeles NP rendered care for this patient independently, reviewed the findings and plan as documented in the note above and agree with plan. I did not physically speak with or examine the patient on this date. Objective - Vital Signs Vital signs: Vital Signs Temp 99.1 F 10/21/24 07:49 Pulse 90 10/21/24 08:06 Resp 16 10/21/24 07:49 BP 119/79 10/21/24 08:06 Pulse Ox 100 10/21/24 07:49 FiO2 Intake & Output 10/20/24 10/21/24 10/21/24 18:59 06:59 18:59 Intake Total 2171 360 Output Total 1675 Balance 496 360 Intake: IV 1451 Oral 720 360 Output: Urine 1600 Uretheral (Goldberg) 900 Estimated Blood Loss 75 Other: Voiding Method Toilet # Voids 4 - Labs CBC & Chem 7: 10/21/24 04:44 10/21/24 04:44 Labs: Abnormal Lab Results - Last 24 Hours (Table) 10/20/24 Range/Units 04:17 BUN/Creatinine Ratio 27.17 H (12.00-20.00) Ratio Total Bilirubin <0.2 L (0.3-1.2) mg/dL Albumin/Globulin Ratio 1.52 L (1.60-3.17) Ratio
[2024-10-22] MEDS: HYDROcodone/APAP 10-325MG 1 EACH TAB PO PRN (09:22)
[2024-10-22] MEDS: SENNOSIDES-DOCUSATE SODIUM 1 EACH TAB PO SCH (09:23)
--- NOTE | 2024-10-22 10:52 | P.PN ---
Subjective Progress Note Date: 10/22/24 Principal diagnosis: Right lower extremity radiculopathy; low back pain Patient was seen at bedside this morning up walking around room with therapy using walker to aid in ambulation. Patient appeared to be taking small shuffling steps. Patient mentions she has what feels like a ongoing charley horse in the right buttocks radiating into the the back of the right leg. Patient states this pain is worse when she lies down with her leg fully extended. Patient says there is some relief in pain when she hangs the leg off the bed. Patient is hoping to stay 1 additional night for continue to work with therapy and for additional pain medication. Patient denies any chest pain, fever, nausea, change in vision, loss of bowel/bladder control. Objective - Vital Signs Vital signs: Vital Signs Temp 98.8 F 10/22/24 09:00 Pulse 97 10/22/24 09:00 Resp 18 10/22/24 09:00 BP 109/75 10/22/24 09:00 Pulse Ox 97 10/22/24 09:00 FiO2 Intake & Output 10/21/24 10/22/24 10/22/24 18:59 06:59 18:59 Intake Total 840 Balance 840 Intake: Oral 840 Other: Voiding Method Toilet # Voids 5 - Exam inspection: Negative for any open fractures, significant erythema/ecchymosis/open wounds. Incision appears to be healing well. Negative for any active drainage. [place] well aligned and intact. There is Optifoam dressing placed over incisions. Sensation: Sensation is altered/diminished throughout the left lower extremity and right lower extremity on exam. Palpation: Moderate tenderness to palpation on the right lower back and right SI joint on exam. Range of motion: Very limited range of motion on the right hip and knee in flexion extension on exam due to referred pain and stiffness in the right side lower back. Patient is able to dorsi and plantarflex right ankle on exam. Patient is able to flex and extend left hip left knee and dorsi and plantarflex left ankle on exam. Motor: 4-/5 in all major motor groups in right lower extremity. 4/5 in all major muscle groups in left lower extremity. Neurovascular: Radial pulse intact, 2+ bilaterally. Cap refill under 3 seconds in digits of upper extremities. Special test: Negative clonus bilaterally. Negative Leigh bilaterally. Negative Homans bilaterally. - Labs CBC & Chem 7: 10/21/24 04:44 10/21/24 04:44 Assessment and Plan Assessment: 1. Right lower extremity radiculopathy; low back pain - Postop day 2 status post right-sided L4-5 microdiscectomy and L5-S1 posterior lateral interbody fusion Plan: 1. Right lower extremity radiculopathy; low back pain -L4-L5 right microdiscectomy and L5-S1 posterior lateral interbody fusion surgery performed 10/20/2024. Patient stable at bedside this morning with dressing over lumbar spine. Dressing clean, dry, intact. Dressing change at bedside this morning. Incision appears to be healing well. Lalo well aligned and intact. Weightbearing as tolerated with walker and assistance as needed. Appreciate PT/OT recommendations. Continue with pain medication as needed. Postoperative CT scan does demonstrate hardware that is stable and intact. We will continue to follow patient during stay in the hospital. 2. Appreciate medical management 3. Pain management -[place]; gabapentin; Robaxin; Dilaudid only as needed 4. GI prophylaxis - senna 5. DVT prophylaxis -mechanical 6. PT/OT -weightbearing as tolerated with walker 7. Encourage incentive spirometer use 8. Discharge planning -plan for discharge home with home care tomorrow. Time with Patient: Less than 30
[2024-10-22] MEDS: HYDROmorphone 0.5 MG/0.5 ML SYRINGE IVP PRN ×2 (12:57→23:38)
[2024-10-22] MEDS: ACETAMINOPHEN TAB 325 MG TAB PO PRN (15:55)
--- NOTE | 2024-10-22 16:33 | P.PN ---
Subjective Progress Note Date: 10/22/24 Hospital Course: Patient is a pleasant 44-year-old female with a past medical history of hypertension, insulin resistance, chronic back pain with left lower extremity neuropathy and decreased sensation. She presented to the emergency department with acute on chronic lower back pain. Patient reports pain typically radiates down the left leg with decreased sensation but states she is having right lower extremity sciatica and uncontrolled 10 out of 10 back pain despite being on [place] tens, Motrin 800, Lyrica, and Valium. She denies having any saddlebag anesthesia, denies having any involuntary loss of bowel or bladder, and denies having any new or worsening numbness in lower extremities. On arrival to our facility, patient underwent evaluation in the emergency department. Vital signs upon arrival show blood pressure 148/90, heart rate 85, respiratory rate 16, temp 98.2 F, and SpO2 of 98% on room air. EKG was completed showing normal sinus rhythm at 95 bpm with no noted T wave or ST abnormality showing no signs of acute ischemia upon personal review and interpretation. Labs completed and reviewed. CBC showing leukocytosis with WBC count of 11.22. Coagulation profile showing a low PTT of 20.1 otherwise normal findings. BMP showing mild p rerenal azotemia with BUN of 19 otherwise normal findings. Blood glucose 86. Liver profile unremarkable. Per documentation in chart patient was seen at [facility] on 10/15/[address] lumbar spine revealing degenerative disc disease with disc herniations L4-L5 and L5-S1. Patient was admitted under orthospine surgery team and we were consulted for medical management throughout hospitalization. Serum hCG negative.MRI lumbar spine revealed redemonstration of L4-L5 and L5-S1 disc herniations with L4-L5 disc herniation abutting the exiting right S1 nerve root and thickening of the cauda equina with exiting nerve root not enhanced. On 10/20/2024 patient underwent L5-S1 posterior lateral interbody fusion with posterior lateral instrumentation and L4-L5 laminoforaminotomy with microdiscectomy, L5-S1 laminectomy, facetectomy, and foraminotomy for decompression and cage placement. Physical exam: Patient was seen and fully evaluated at bedside this morning. She is post op day 2. Pt was ambulating in room with a steady gait upon assessment. Postoperative dressing x [address] to lumbar back. Dressings intact with no noted bleedthrough or drainage. Patient continues to report 10 out of 10 uncontrolled pain to lumbar back region. She reports that the tightness with a constant unrelenting pain. She denies having any numbness/tingling/weakness and continues to report urinating without any difficulties. Patient reports normal appetite and bowel function. Patient has been encouraged to wean off of IV pain medication. Vital signs reviewed and stable. General: Nontoxic, no distress and appears stated age. Derm: Skin warm and dry, normal coloration for ethnicity. Head: Atraumatic, normocephalic and symmetric. Eyes: EOM's intact, no lid lag, and anicteric sclera Mouth: no lip lesions, mucus membranes moist Cardiovascular: regular rate and rhythm with normal S1S2, no murmur, positive posterior tibial pulses bilaterally, and cap refill < 2 seconds. Lungs: Respirations even, regular, and unlabored on room air. Lungs CTA bilaterally, no rhonchi, no rales, no wheezing, and no accessory muscle usage. Abdominal: soft, nontender to palpation, no guarding, no appreciable organomegaly Ext: No gross muscle atrophy, no edema, no contractures. Movement and sensation intact. Patient does report decreased sensation in left lower extremity but reports at baseline. Neuro: Speech clear, face symmetrical and CN II-XII grossly intact with no noted focal neuro deficits Psych: Alert and oriented to person, place, time, and situation. Agitated affect Assessment and Plan of Care: Status post L5-S1 posterior lateral interbody fusion with posterior lateral instrumentation and L4-L5 laminoforaminotomy with microdiscectomy, L5-S1 laminectomy, facetectomy, and foraminotomy for decompression and cage placement. Acute on chronic lower back pain Degenerative disc disease - Postoperative management per primary admitting orthopedic surgery team including DVT prophylaxis, pain management, wound/dressing/drain management, advancement of activity, and PT/OT. - Continue symptomatic care and pain management with Lyrica 100 mg 4 times daily, Valium 5 mg every 8 hours as needed for muscle spasms, Tylenol 650 mg every 6 hours as needed for mild to moderate pain, [place] 10/325 mg tablets every 6 hours as needed for moderate to severe pain, and Dilaudid 0.5 mg every 3 hours as needed for severe uncontrolled pain. - Maintain fall precautions. - Currently DVT prophylaxis with BILLY hose and SCDs. Leukocytosis -Reactive secondary to surgical procedure. No signs of infection no need for further intervention at this time. Hypertension -Monitor vital signs and continue daily medication regimen with amlodipine 10 mg daily and losartan 100 mg daily Insulin resistance, type II [id number]-crijzmsar diabetes mellitus -Hold metformin and continue patient on glycemic protocol with Humalog sliding scale. Patient has been refusing many blood glucose checks. ADHD -Continue Vyvanse 40 mg daily. Data and imaging reviewed: - Vital signs reviewed. Blood pressure 109/75, heart rate 97, respiratory rate 18, temp 98.8 F, and SpO2 of 97% on room air - Labs reviewed. CBC showing mild leukocytosis with WBC count of 13.94. BMP showing mild high anion gap metabolic acidosis with chloride of 102, bicarb of 20.7, and anion gap of 13.30. Blood glucose was 98. Patient is medically optimized for discharge once pain has improved and patient is cleared by primary admitting orthopedic surgery team. Thank you for allowing us to participate in the care of this pleasant patient. Do not hesitate to contact us with questions. Someone can be reached from the [facility] hospitalist group all hours of the day at [phone] or via [employer]. Patient was seen independently by Nurse Practitioner. This document was prepared using [employer] dictation software. Please allow for errors in loss prevention investigator while rare they do occur. Andrew Angeles NP rendered care for this patient independently, reviewed the findings and plan as documented in the note above and agree with plan. I did no t physically speak with or examine the patient on this date. Objective - Vital Signs Vital signs: Vital Signs Temp 99.0 F 10/22/24 01:47 Pulse 93 10/22/24 01:47 Resp 18 10/22/24 01:47 BP 107/68 10/22/24 01:47 Pulse Ox 92 L 10/22/24 01:47 FiO2 Intake & Output 10/21/24 10/22/24 10/22/24 18:59 06:59 18:59 Intake Total 840 Balance 840 Intake: Oral 840 Other: Voiding Method Toilet # Voids 5 - Labs CBC & Chem 7: 10/21/24 04:44 10/21/24 04:44 Labs: Abnormal Lab Results - Last 24 Hours (Table) 10/21/24 10/21/24 Range/Units 04:44 04:44 WBC 13.94 H (4.50-10.00) X 10*3/uL Immature Gran # 0.10 H (0.00-0.04) X 10*3/uL Neutrophils # 11.09 H (1.80-7.70) X 10*3/uL Monocytes # 1.37 H (0.20-1.00) X 10*3/uL Carbon Dioxide 20.7 L (21.6-31.8) mmol/L Anion Gap 13.30 H (4.00-12.00) mmol/L BUN/Creatinine Ratio 24.43 H (12.00-20.00) Ratio
[2024-10-23] MEDS ORDERED: oxyCODONE-APAP 5-325MG 1 EACH TAB PO PRN (08:28)
[2024-10-23] MEDS: oxyCODONE-APAP 5-325MG 1 EACH TAB PO SCH (08:54)
--- NOTE | 2024-10-23 10:53 | P.PN ---
Subjective Progress Note Date: 10/23/24 Principal diagnosis: Right lower extremity radiculopathy; low back pain Patient was seen at bedside this morning sitting up in chair with dressings present over lumbar spine. Patient states she is hoping to work with therapy later this morning. Patient says there is some improvement in regards to the pain she was having in the right buttocks/right leg yesterday. Patient says she just did receive a walker for home. Patient says her and son will be able to help her out when she is home. 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 Patient says she would like to try a back brace for home Objective - Vital Signs Vital signs: Vital Signs Temp 98.1 F 10/23/24 07:30 Pulse 89 10/23/24 07:30 Resp 17 10/23/24 07:30 BP 123/81 10/23/24 07:30 Pulse Ox 99 10/23/24 07:30 FiO2 Intake & Output 10/22/24 10/23/24 10/23/24 18:59 06:59 18:59 Output Total 0 Balance 0 Output: Stool 0 Other: Voiding Method Toilet Toilet # Voids 1 - Exam inspection: Negative for any open fractures, significant erythema/ecchymosis/open wounds. Incision appears to be healing well. Negative for any active drainage. Lalo well aligned and intact. Optifoam dressings present over incisions Sensation: Sensation is altered/diminished throughout the left lower extremity and right lower extremity on exam. Palpation: Moderate tenderness to palpation on the right lower back and right SI joint on exam. Range of motion: Very limited range of motion on the right hip and knee in flexion extension on exam due to referred pain and stiffness in the right side lower back. Patient is able to dorsi and plantarflex right ankle on exam. Patient is able to flex and extend left hip left knee and dorsi and plantarflex left ankle on exam. Motor: 4-/5 in all major motor groups in right lower extremity. 4/5 in all major muscle groups in left lower extremity. Neurovascular: Radial pulse intact, 2+ bilaterally. Cap refill under 3 seconds in digits of upper extremities. Special test: Negative clonus bilaterally. Negative Leigh bilaterally. Negative Homans bilaterally. - Labs CBC & Chem 7: 10/21/24 04:44 10/21/24 04:44 Assessment and Plan Assessment: 1. Right lower extremity radiculopathy; low back pain - Postop day 3 status post right-sided L4-5 microdiscectomy and L5-S1 posterior lateral interbody fusion Plan: 1. Right lower extremity radiculopathy; low back pain -L4-L5 right microdiscectomy and L5-S1 posterior lateral interbody fusion surgery performed 10/20/2024. Patient stable at bedside this morning with dressing over lumbar spine. Dressing clean, dry, intact. Incision appears to be healing well. Lalo well aligned and intact. Weightbearing as tolerated with walker and assistance as needed. Appreciate PT/OT recommendations. Continue with pain medication as needed. Postoperative CT scan does demonstrate hardware that is stable and intact. Prescription for LSO brace was signed. Case management working on this. Discharge home with home care today vs tmrw 2. Appreciate medical management 3. Pain management -[place]; gabapentin; Robaxin; Dilaudid only as needed 4. GI prophylaxis - senna 5. DVT prophylaxis -mechanical 6. PT/OT -weightbearing as tolerated with walker 7. Encourage incentive spirometer use 8. Discharge planning -discharge home with home care today vs tmrw Time with Patient: Less than 30
--- NOTE | 2024-10-23 10:57 | P.DS ---
Providers Date of admission: 10/17/24 14:08 Expected date of discharge: 10/23/24 Attending physician: Geronimo Tomas DO Consults: 10/17/24 12:25 Consult Physician Urgent Consulting Provider: Daina Varma Reason/Comments: med management Do you want consulting provider notified?: Yes Primary care physician: [facility] Course: Date of admission: 10/17/2024 Date of discharge: 10/23/2024 Admission diagnosis: 1. L4-5 HNP WITH STENOSIS 2. L5-S1 HNP WITH DDD AND STENOSIS 3. RLE RADICULOPATHY WITH TENSIONING 4. LOW BACK PAIN Discharge diagnosis: Same Attending physician: Dr. Tomas Surgical procedures: right-sided L4-5 microdiscectomy and L5-S1 posterior lateral interbody fusion Brief history: Patient is a 44-year-old female with a history of right lower extremity radiculopathy; low back pain. At this point patient has failed conservative treatment measures and has opted to proceed with a elective right- sided L4-5 microdiscectomy and L5-S1 posterior lateral interbody fusion. Hospital course: Details of patient's surgery can be found in operative report. Patient tolerated the procedure well and was subsequently transported to [facility]. Patient's orthopeidc and medical care was provided daily. Patient had daily laboratory tests performed for evaluation of overall blood counts. Patient had daily physical therapy to include strengthening range of motion as well as education with walker ambulation. Patient was noted to have a relatively uneventful postoperative course. Patient reported satisfactory pain control with oral pain medications by postoperative day 3. Patient showed satisfactory progress with physical therapy. Patient moved steadily through the program and had no difficulty meeting the goals by postoperative day 3. Given patient's otherwise satisfactory course and having met physical therapy goals, plan is to discharge patient home with home care on postoperative day 3. Discharge condition/disposition: Patient will be discharged home with home care in stable condition. Discharge medications: Instructions are given on resumption of patient's normal daily medications per primary care recommendation, in addition patient will be prescribed [place]; Robaxin; gabapentin; senna; Duricef. Spine Discharge and Recovery Instructions Date of Surgery: 10/20/2024 Diagnosis: 1. L4-5 HNP WITH STENOSIS 2. L5-S1 HNP WITH DDD AND STENOSIS 3. RLE RADICULOPATHY WITH TENSIONING 4. LOW BACK PAIN Procedure: Right-sided L4-5 microdiscectomy and L5-S1 posterior lateral interbody fusion Medications: See medication list All medication refills should be obtained through your primary care doctor or your clinic spine surgeon. Please discuss prescription refills at your follow up appointment. Do not call the hospital for medication refills. Dressing: Leave your dressing in place for a total of 5 days post operatively. Then you may remove your dressing and leave open to air. Keep the area clean and if not able to keep area clean, then cover with sterile gauze and tape. Showering: You may shower 3 days after your procedure allowing soap and water to run over incision. Do not scrub. Do not soak. Blot dry. Follow up: Please confirm a follow up appointment with your surgeon 3 weeks post operatively. Please make an appointment to follow up with your PCP in 1-2 weeks after surgery for evaluation '3 phase, 3-week plan' POST OP WEEKS 1-3 1. Lifting/carrying/pushing/pulling limited to less than 5 pounds. 2. Do not sit for longer than 15 minutes at one time. Get up and walk around. Prolonged sitting is NOT advised. If you lay down, see if you can tolerate laying down on you front (belly side) 3. Walk for periods of 15 minutes = 1 mile but no longer; do it multiple times times each day. 4. Ice your low back after activity. POST OP WEEKS 3-6 1. Lifting limited to less than 20 pounds. 2. Do not sit for longer than 30 minutes at a time. Frequently change positions. Use a sit-to stand workstation or take frequent breaks from sitting if you have returned to work. 3. Walk for 30 minutes each day. If possible, do these three or more times a day POST OP WEEKS 6+ At your 6-week appointment we will give you a physical therapy referral to focus on a core stabilization and strengthening program. You should also work on leg & buttock strengthening, hamstring & quadriceps stretching, and continue a low impact aerobic activity program such as swimming, walking, or riding a stationary bicycle. During the initial 6 weeks after your surgery, you are at the highest risk of re-injuring your spine. You should generally avoid BLT's (bending, lifting and twisting combination motions) and follow the above guidelines to reduce the chance of reinjury. You can anticipate post op appointments in our office at approximately 3 weeks and 6 weeks after your surgery. INCISION CARE: If your incision is not draining you do NOT need to cover it with a dressing. Keep your incision clean, dry and intact. In most cases, we apply skin glue, rd or sutures to the incision at the time of surgery. This will be like a crust or have the appearance of a scab and will fall off in time on its own. The stitches or rd need to be removed at 3 weeks post op appointment. You may begin to shower 3 days after surgery (this allows the glue to kenney well). However, please avoid scrubbing the incision site or peeling off any of the skin glue. This will ensure optimal healing of your incision. Also, during this time avoid soaking the incision area in water - this includes swimming pools, hot tubs or baths. No ointments, lotions or o ils on the incision until your surgeon allows. Leave rd, sutures or glue in place. Neurological dysfunction that comes on suddenly can also be a sign of a stroke. Below some common symptoms of a stroke are listed: B - balance difficulty such as sudden onset walking or leaning to one side - NEW E - eye problem such as sudden double vision or trouble seeing on one side - NEW F - Facial weakness or numbness on one side - NEW A - Arm or leg weakness or numbness on one side - NEW S - Slurred speech or difficulty with word finding - NEW T - Time is BRAIN! Call 911 as soon as you recognize these symptoms Diet: Consume a regular diet rich in vegetables and lean protein such as chicken or fish. You should consume in a ratio of approximately 20% fats|40% carbohydrates|40%protein. Vegetables, sweet potatoes, brown rice or quinoa are examples of good carbohydrates. Chips, white bread, cookies and sweets/sugar are examples of bad carbohydrates. Limit your bad carbs, go wild with good carbs. "Life's Simple 7" Guidelines as per [place] [employer] These will help you reclaim your life after surgery and ice cream freezer helper in your recovery, keeping in mind your restrictions. (1) Get Active. Physical activity can help people lose weight, control high blood pressure and cholesterol, feel emotionally better, and sleep better. (2) Control Cholesterol. Avoid a diet high in saturated fat, trans fat, & cholesterol. Limit whole milk & cream, ice cream, butter, egg yolks, processed meats (like sausage and hot dogs), and fatty meats. Choose healthy foods that are low in saturated fat, trans fat and cholesterol which include: Fruits and vegetables, fiber rich grain products (like whole grain pasta and brown rice), lean meat such as chicken, fish, nuts, seeds, and legumes. (3) Eat Better. Eat small portions. Shop at the grocery with a list and do not stray from it. Tips for a healthy diet include: Limit sodium intake to less than 1500mg daily, avoid prepackaged, processed, and fast foods, choose a diet rich in fruits, vegetables, and whole grain, high fiber foods, and limit saturated & cholesterol in your diet. (4) Manage Blood Pressure. If you have high blood pressure, you should have a cuff at home so that you can check your blood pressure regularly. Be sure you have a good cuff. An arm one is generally better than a wrist one. Bring the cuff to a doctor's appointment to validate that the measurements that your cuff are taking are accurate. Take your blood pressure twice daily when you are sitting down and relaxing. Record the numbers in a log and bring this log with you to your doctors' appointments. (5) Lose Weight if your BMI is above 25. A healthy BMI is between 19-25. To calculate Your BMI, you may use a Standard BMI Calculator on the NIH BMI website: <www.nhlbi.nih.gov/guidelines/obesity/BMI/bmicalc.htm>. Weigh oneself daily. If you are overweight, set a goal to lose weight. A pound a week loss if needed is a good target. (6) Reduce Blood Sugar. Limit foods and liquids with "added sugars." (Added sugars include sucrose, fructose, glucose, maltose, dextrose, high fructose corn syrup, corn syrup, concentrated fruit juice and honey). (7) Stop Smoking. If you smoke, quitting smoking is one of the best things that you can do for your health. Smoking increases your risk of heart attack, stroke, and peripheral vascular disease, which is a build-up of plaque in your arteries. Please discard all the cigarettes and lighters in your house. Have a plan for what you will do when you have the urge to smoke. Direct and second- hand smoke shortens your life as well as the lives of your family, friends and others around you. For your health and the health of those around you, please consider quitting! Proper Bending Body Mechanics: Maintain a wide stance with one foot slightly in front of the other. Keep your back straight. Bend utilizing the strength in your hips and knees. Do not bend at the waist. Maintain the lifted object at your waist-level close to your body. Avoid lifting weight that causes immediately pain or pain anywhere in the body afterwards. Smoking/Nicotine If there was ever one thing that you could do to increase your overall health, decrease your risk of cardiovascular problems by about 39% the second you make the choice, it is to STOP SMOKING. Your body's most instant gratification is the second you stop smoking. We have all heard the studies, read the articles but it is true, smoking is extremely bad for your overall health, and moreover it is detrimental to your bone health. Nicotine, IN ANY FORM, kills bone cells, prevents your body from healing fractures, and significantly prolongs healing after surgery. In spine surgery specifically, it increases your risk of not healing your bones to create a fusion and increases your risk of having a revision surgery due to this up to 60%. I know it is hard. I know it feels impossible. But there are ways. Take control of your life. We are here to help you through it. And when you are ready, ask us and we can direct you to help if you desire. Use the START Plan to Quit Smoking (please visit the [employer] website listed below for more information): S = Set a quit date. Choose a date within the next 2 weeks, so you have enough time to prepare without losing your motivation to quit. If you mainly smoke at work, quit on the weekend, so you have a few days to adjust to the change. T = Tell family, friends, and co-workers that you plan to quit. Let your friends and family in on your plan to quit smoking and tell them you need their support and encouragement to stop. Look for a quit isidra who wants to stop smoking as well. You can help each other get through the rough times. A = Anticipate and plan for the challenges you'll face while quitting. Most people who begin smoking again do so within the first 3 months. You can help yourself make it through by preparing ahead for common challenges, such as nicotine withdrawal and cigarette cravings. R = Remove cigarettes and other tobacco products from your home, car, and work. Throw away all your cigarettes (no emergency pack!), lighters, ashtrays, and matches. Wash your clothes and freshen up anything that smells like smoke. Shampoo your car, clean your drapes and carpet, and steam your furniture. T = Talk to your doctor about getting help to quit. Your doctor can prescribe medication to help with withdrawal and suggest other alternatives. If you can't see a doctor, you can get many products over the counter at your local pharmacy or grocery store, including the nicotine patch, nicotine lozenges, and nicotine gum. Resources for Quitting Smoking: <https://www.[place].gov/documents/[facility]/Quit_Tobacco_Resources_for_patients_313 480_7.pdf> Supplementation: Take recommended dosages of Vitamin D and Calcium to help fortify your bones and help them to heal. See your health maintenance packet for dosages and recommended levels. DVT/VTE prophylaxis: You will be given compression stockings from the hospital. Wear these daily for the first two weeks after surgery. You may take them off at night. You may be prescribed a medication to help thin your blood. Take this as directed. If you are not prescribed this medication, early and frequent ambulation has been shown to be the best prophylaxis to deep vein thrombosis and sequelae related to this event. Assessment: 1. L4-5 HNP WITH STENOSIS 2. L5-S1 HNP WITH DDD AND STENOSIS 3. RLE RADICULOPATHY WITH TENSIONING 4. LOW BACK ASM Procedures: right-sided L4-5 microdiscectomy and L5-S1 posterior lateral interbody fusion Patient Condition at Discharge: Stable Plan - Discharge Summary New Discharge Prescriptions: New Gabapentin [Neurontin] 300 mg PO TID #30 cap methocarbamoL [Robaxin-750] 750 mg PO QID #30 tab polyethylene glycoL 3350 [Miralax] 17 gm PO DAILY 30 Days #30 packet cefaDROXiL [Duricef] 500 mg PO Q12HR 5 Days #10 cap HYDROcodone/APAP 10-325MG [[place] 10-325] 1 tab PO Q4-6H PRN #28 tab PRN Reason: Pain Sennosides/Docusate Sodium [Senna Plus 8.6-50 mg Softgel] 1 each PO DAILY #20 capsule Continue Losartan Potassium 100 mg PO DAILY Ibuprofen [Motrin] 800 mg PO Q8H PRN PRN Reason: Pain Or Fever > 100.5 diazePAM [Valium] 5 mg PO Q8H PRN PRN Reason: Muscle Spasm buPROPion XL [Wellbutrin XL] 150 mg PO DAILY amLODIPine [Norvasc] 10 mg PO DAILY Lisdexamfetamine Dimesylate [Vyvanse] 40 mg PO DAILY HYDROcodone/APAP 10-325MG [[place] 10-325] 1 tab PO Q6H metFORMIN HCL 500 mg PO BID Pregabalin [Lyrica] 100 mg PO QID No Action predniSONE 50 mg PO DAILY Discharge Medication List HYDROcodone/APAP 10-325MG [[place] 10-325] 1 tab PO Q6H 04/30/21 [History] Ibuprofen [Motrin] 800 mg PO Q8H PRN 10/17/24 [History] Lisdexamfetamine Dimesylate [Vyvanse] 40 mg PO DAILY 10/17/24 [History] Losartan Potassium 100 mg PO DAILY 10/17/24 [History] Pregabalin [Lyrica] 100 mg PO QID 10/17/24 [History] amLODIPine [Norvasc] 10 mg PO DAILY 10/17/24 [History] buPROPion XL [Wellbutrin XL] 150 mg PO DAILY 10/17/24 [History] diazePAM [Valium] 5 mg PO Q8H PRN 10/17/24 [History] metFORMIN HCL 500 mg PO BID 10/17/24 [History] predniSONE 50 mg PO DAILY 10/17/24 [History] polyethylene glycoL 3350 [Miralax] 17 gm PO DAILY 30 Days #30 packet 10/22/24 [Rx] Gabapentin [Neurontin] 300 mg PO TID #30 cap 10/23/24 [Rx] HYDROcodone/APAP 10-325MG [[place] 10-325] 1 tab PO Q4-6H PRN #28 tab 10/23/24 [Rx] Sennosides/Docusate Sodium [Senna Plus 8.6-50 mg Softgel] 1 each PO DAILY #20 capsule 10/23/24 [Rx] cefaDROXiL [Duricef] 500 mg PO Q12HR 5 Days #10 cap 10/23/24 [Rx] methocarbamoL [Robaxin-750] 750 mg PO QID #30 tab 10/23/24 [Rx] Follow up Appointment(s)/Referral(s): Tia Perez [NON-STAFF] - As Needed (walker) Kenia Albright MD [Primary Care Provider] - 1-2 days Geronimo Tomas DO [Doctor of Osteopathic Medicine] - 2 Weeks [facility] [NON-STAFF] - As Needed (Please call to see if they have a toilet riser and shower chair.) Jamia Anne [NON-STAFF] - As Needed (LSO back brace) Activity/Diet/Wound Care/Special Instructions: Spine Discharge and Recovery Instructions Date of Surgery: 10/20/2024 Diagnosis: 1. L4-5 HNP WITH STENOSIS 2. L5-S1 HNP WITH DDD AND STENOSIS 3. RLE RADICULOPATHY WITH TENSIONING 4. LOW BACK PAIN Procedure: Right-sided L4-5 microdiscectomy and L5-S1 posterior lateral interbody fusion Medications: See medication list All medication refills should be obtained through your primary care doctor or your clinic spine surgeon. Please discuss prescription refills at your follow up appointment. Do not call the hospital for medication refills. Dressing: Leave your dressing in place for a total of 5 days post operatively. Then you may remove your dressing and leave open to air. Keep the area clean and if not able to keep area clean, then cover with sterile gauze and tape. Showering: You may shower 3 days after your procedure allowing soap and water to run over incision. Do not scrub. Do not soak. Blot dry. Follow up: Please confirm a follow up appointment with your surgeon 3 weeks post operatively. Please make an appointment to follow up with your PCP in 1-2 weeks after surgery for evaluation '3 phase, 3-week plan' POST OP WEEKS 1-3 1. Lifting/carrying/pushing/pulling limited to less than 5 pounds. 2. Do not sit for longer than 15 minutes at one time. Get up and walk around. Prolonged sitting is NOT advised. If you lay down, see if you can tolerate laying down on you front (belly side) 3. Walk for periods of 15 minutes = 1 mile but no longer; do it multiple times times each day. 4. Ice your low back after activity. POST OP WEEKS 3-6 1. Lifting limited to less than 20 pounds. 2. Do not sit for longer than 30 minutes at a time. Frequently change positions. Use a sit-to stand workstation or take frequent breaks from sitting if you have returned to work. 3. Walk for 30 minutes each day. If possible, do these three or more times a day POST OP WEEKS 6+ At your 6-week appointment we will give you a physical therapy referral to focus on a core stabilization and strengthening program. You should also work on leg & buttock strengthening, hamstring & quadriceps stretching, and continue a low impact aerobic activity program such as swimming, walking, or riding a stationary bicycle. During the initial 6 weeks after your surgery, you are at the highest risk of re-injuring your spine. You should generally avoid BLT's (bending, lifting and twisting combination motions) and follow the above guidelines to reduce the chance of reinjury. You can anticipate post op appointments in our office at approximately 3 weeks and 6 weeks after your surgery. INCISION CARE: If your incision is not draining you do NOT need to cover it with a dressing. Keep your incision clean, dry and intact. In most cases, we apply skin glue, rd or sutures to the incision at the time of surgery. This will be like a crust or have the appearance of a scab and will fall off in time on its own. The stitches or rd need to be removed at 3 weeks post op appointment. You may begin to shower 3 days after surgery (this allows the glue to kenney well). However, please avoid scrubbing the incision site or peeling off any of the skin glue. This will ensure optimal healing of your incision. Also, during this time avoid soaking the incision area in water - this includes swimming pools, hot tubs or baths. No ointments, lotions or oils on the incision until your surgeon allows. Leave rd, sutures or glue in place. Neurological dysfunction that comes on suddenly can also be a sign of a stroke. Below some common symptoms of a stroke are listed: B - balance difficulty such as sudden onset walking or leaning to one side - N EW E - eye problem such as sudden double vision or trouble seeing on one side - NEW F - Facial weakness or numbness on one side - NEW A - Arm or leg weakness or numbness on one side - NEW S - Slurred speech or difficulty with word finding - NEW T - Time is BRAIN! Call 911 as soon as you recognize these symptoms Diet: Consume a regular diet rich in vegetables and lean protein such as chicken or fish. You should consume in a ratio of approximately 20% fats|40% carbohydrates|40%protein. Vegetables, sweet potatoes, brown rice or quinoa are examples of good carbohydrates. Chips, white bread, cookies and sweets/sugar are examples of bad carbohydrates. Limit your bad carbs, go wild with good carbs. "Life's Simple 7" Guidelines as per [employer] These will help you reclaim your life after surgery and ice cream freezer helper in your recovery, keeping in mind your restrictions. (1) Get Active. Physical activity can help people lose weight, control high blood pressure and cholesterol, feel emotionally better, and sleep better. (2) Control Cholesterol. Avoid a diet high in saturated fat, trans fat, & cholesterol. Limit whole milk & cream, ice cream, butter, egg yolks, processed meats (like sausage and hot dogs), and fatty meats. Choose healthy foods that are low in saturated fat, trans fat and cholesterol which include: Fruits and vegetables, fiber rich grain products (like whole grain pasta and brown rice), lean meat such as chicken, fish, nuts, seeds, and legumes. (3) Eat Better. Eat small portions. Shop at the grocery with a list and do not stray from it. Tips for a healthy diet include: Limit sodium intake to less than 1500mg daily, avoid prepackaged, processed, and fast foods, choose a diet rich in fruits, vegetables, and whole grain, high fiber foods, and limit saturated & cholesterol in your diet. (4) Manage Blood Pressure. If you have high blood pressure, you should have a cuff at home so that you can check your blood pressure regularly. Be sure you have a good cuff. An arm one is generally better than a wrist one. Bring the cuff to a doctor's appointment to validate that the measurements that your cuff are taking are accurate. Take your blood pressure twice daily when you are sitting down and relaxing. Record the numbers in a log and bring this log with you to your doctors' appointments. (5) Lose Weight if your BMI is above 25. A healthy BMI is between 19-25. To calculate Your BMI, you may use a Standard BMI Calculator on the NIH BMI website: <www.nhlbi.nih.gov/guidelines/obesity/BMI/bmicalc.htm>. Weigh oneself daily. If you are overweight, set a goal to lose weight. A pound a week loss if needed is a good target. (6) Reduce Blood Sugar. Limit foods and liquids with "added sugars." (Added sugars include sucrose, fructose, glucose, maltose, dextrose, high fructose corn syrup, corn syrup, concentrated fruit juice and honey). (7) Stop Smoking. If you smoke, quitting smoking is one of the best things that you can do for your health. Smoking increases your risk of heart attack, stroke, and peripheral vascular disease, which is a build-up of plaque in your arteries. Please discard all the cigarettes and lighters in your house. Have a plan for what you will do when you have the urge to smoke. Direct and second- hand smoke shortens your life as well as the lives of your family, friends and others around you. For your health and the health of those around you, please consider quitting! Proper Bending Body Mechanics: Maintain a wide stance with one foot slightly in front of the other. Keep your back straight. Bend utilizing the strength in your hips and knees. Do not bend at the waist. Maintain the lifted object at your waist-level close to your body. Avoid lifting weight that causes immediately pain or pain anywhere in the body afterwards. Smoking/Nicotine If there was ever one thing that you could do to increase your overall health, decrease your risk of cardiovascular problems by about 39% the second you make the choice, it is to STOP SMOKING. Your body's most instant gratification is the second you stop smoking. We have all heard the studies, read the articles but it is true, smoking is extremely bad for your overall health, and moreover it is detrimental to your bone health. Nicotine, IN ANY FORM, kills bone cells, prevents your body from healing fractures, and significantly prolongs healing after surgery. In spine surgery specifically, it increases your risk of not healing your bones to create a fusion and increases your risk of having a revision surgery due to this up to 60%. I know it is hard. I know it feels impossible. But there are ways. Take control of your life. We are here to help you through it. And when you are ready, ask us and we can direct you to help if you desire. Use the START Plan to Quit Smoking (please visit the Helpguide.org website listed below for more information): S = Set a quit date. Choose a date within the next 2 weeks, so you have enough time to prepare without losing your motivation to quit. If you mainly smoke at work, quit on the weekend, so you have a few days to adjust to the change. T = Tell family, friends, and co-workers that you plan to quit. Let your friends and family in on your plan to quit smoking and tell them you need their support and encouragement to stop. Look for a quit isidra who wants to stop smoking as well. You can help each other get through the rough times. A = Anticipate and plan for the challenges you'll face while quitting. Most people who begin smoking again do so within the first 3 months. You can help yourself make it through by preparing ahead for common challenges, such as nicotine withdrawal and cigarette cravings. R = Remove cigarettes and other tobacco products from your home, car, and work. Throw away all your cigarettes (no emergency pack!), lighters, ashtrays, and matches. Wash your clothes and freshen up anything that smells like smoke. Shampoo your car, clean your drapes and carpet, and steam your furniture. T = Talk to your doctor about getting help to quit. Your doctor can prescribe medication to help with withdrawal and suggest other alternatives. If you can't see a doctor, you can get many products over the counter at your local pharmacy or grocery store, including the nicotine patch, nicotine lozenges, and nicotine gum. Resources for Quitting Smoking: <https://www.[facility].gov/documents/[facility]/Quit_Tobacco_Resources_for_patients_313480_7.pdf> Supplementation: Take recommended dosages of Vitamin D and Calcium to help fortify your bones and help them to heal. See your health maintenance packet for dosages and recommended levels. DVT/VTE prophylaxis: You will be given compression stockings from the hospital. Wear these daily for the first two weeks after surgery. You may take them off at night. You may be prescribed a medication to help thin your blood. Take this as directed. If you are not prescribed this medication, early and frequent ambulation has been shown to be the best prophylaxis to deep vein thrombosis and sequelae related to this event. Discharge Disposition: HOME SELF-CARE
--- NOTE | 2024-10-23 17:22 | P.PN ---
Subjective Progress Note Date: 10/23/24 Hospital Course: Patient is a pleasant 44-year-old female with a past medical history of hypertension, insulin resistance, chronic back pain with left lower extremity neuropathy and decreased sensation. She presented to the emergency department with acute on chronic lower back pain. Patient reports pain typically radiates down the left leg with decreased sensation but states she is having right lower extremity sciatica and uncontrolled 10 out of 10 back pain despite being on Rydal tens, Motrin 800, Lyrica, and Valium. She denies having any saddlebag anesthesia, denies having any involuntary loss of bowel or bladder, and denies having any new or worsening numbness in lower extremities. On arrival to our facility, patient underwent evaluation in the emergency department. Vital signs upon arrival show blood pressure 148/90, heart rate 85, respiratory rate 16, temp 98.2 F, and SpO2 of 98% on room air. EKG was completed showing normal sinus rhythm at 95 bpm with no noted T wave or ST abnormality showing no signs of acute ischemia upon personal review and interpretation. Labs completed and reviewed. CBC showing leukocytosis with WBC count of 11.22. Coagulation profile showing a low PTT of 20.1 otherwise normal findings. BMP showing mild p rerenal azotemia with BUN of 19 otherwise normal findings. Blood glucose 86. Liver profile unremarkable. Per documentation in chart patient was seen at [facility] on 10/15/[address] lumbar spine revealing degenerative disc disease with disc herniations L4-L5 and L5-S1. Patient was admitted under orthospine surgery team and we were consulted for medical management throughout hospitalization. Serum hCG negative.MRI lumbar spine revealed redemonstration of L4-L5 and L5-S1 disc herniations with L4-L5 disc herniation abutting the exiting right S1 nerve root and thickening of the cauda equina with exiting nerve root not enhanced. On 10/20/2024 patient underwent L5-S1 posterior lateral interbody fusion with posterior lateral instrumentation and L4-L5 laminoforaminotomy with microdiscectomy, L5-S1 laminectomy, facetectomy, and foraminotomy for decompression and cage placement. Physical exam: Patient was seen and fully evaluated at bedside this morning. She is post op day 3. Pt was ambulating in hallway with physical therapy. Patient ambulating with walker and appeared to be doing well. Patient reports continued pain but appears to be more controlled today. Patient denies having any other questions, concerns, complaints, or needs at this time. Vital signs reviewed and stable. General: Nontoxic, no distress and appears stated age. Derm: Skin warm and dry, normal coloration for ethnicity. Head: Atraumatic, normocephalic and symmetric. Eyes: EOM's intact, no lid lag, and anicteric sclera Mouth: no lip lesions, mucus membranes moist Cardiovascular: regular rate and rhythm with normal S1S2, no murmur, positive posterior tibial pulses bilaterally, and cap refill < 2 seconds. Lungs: Respirations even, regular, and unlabored on room air. Lungs CTA bilaterally, no rhonchi, no rales, no wheezing, and no accessory muscle usage. Abdominal: soft, nontender to palpation, no guarding, no appreciable organomegal y Ext: No gross muscle atrophy, no edema, no contractures. Movement and sensation intact. Patient does report decreased sensation in left lower extremity but reports at baseline. Neuro: Speech clear, face symmetrical and CN II-XII grossly intact with no noted focal neuro deficits Psych: Alert and oriented to person, place, time, and situation. Agitated affect Assessment and Plan of Care: Status post L5-S1 posterior lateral interbody fusion with posterior lateral instrumentation and L4-L5 laminoforaminotomy with microdiscectomy, L5-S1 laminectomy, facetectomy, and foraminotomy for decompression and cage placement. Acute on chronic lower back pain Degenerative disc disease - Postoperative management per primary admitting orthopedic surgery team including DVT prophylaxis, pain management, wound/dressing/drain management, advancement of activity, and PT/OT. - Continue symptomatic care and pain management with Lyrica 100 mg 4 times daily, Valium 5 mg every 8 hours as needed for muscle spasms, Tylenol 650 mg every 6 hours as needed for mild to moderate pain, Rydal 10/325 mg tablets every 6 hours as needed for moderate to severe pain, and Dilaudid 0.5 mg every 3 hours as needed for severe uncontrolled pain. - Maintain fall precautions. - Currently DVT prophylaxis with BILLY hose and SCDs. Leukocytosis -Reactive secondary to surgical procedure. No signs of infection no need for further intervention at this time. Hypertension -Monitor vital signs and continue daily medication regimen with amlodipine 10 mg daily and losartan 100 mg daily Insulin resistance, type II [id number] diabetes mellitus -Hold metformin and continue patient on glycemic protocol with Humalog sliding scale. Patient has been refusing many blood glucose checks. ADHD -Continue Vyvanse 40 mg daily. Data and imaging reviewed: - Vital signs reviewed. Blood pressure 123/81, heart rate 89, respiratory rate 17, temp 98.1 F, and SpO2 of 99% on room air - Labs reviewed. CBC showing mild leukocytosis with WBC count of 13.94. BMP showing mild high anion gap metabolic acidosis with chloride of 102, bicarb of 20.7, and anion gap of 13.30. Blood glucose was 98. Patient is medically optimized for discharge once cleared by primary admitting orthopedic surgery team. Thank you for allowing us to participate in the care of this pleasant patient. Do not hesitate to contact us with questions. Someone can be reached from the [facility] hospitalist group all hours of the day at [phone] or via [employer]. Patient was seen independently by Nurse Practitioner. This document was prepared using [employer] dictation software. Please allow for errors in trimmer operator three knife while rare they do occur. Andrew Angeles NP rendered care for this patient independently, reviewed the findings and plan as documented in the note above and agree with plan. I did not physically speak with or examine the patient on this date. Objective - Vital Signs Vital signs: Vital Signs Temp 98.1 F 10/23/24 07:30 Pulse 89 10/23/24 07:30 Resp 17 10/23/24 07:30 BP 123/81 10/23/24 07:30 Pulse Ox 99 10/23/24 07:30 FiO2 Intake & Output 10/22/24 10/23/24 10/23/24 18:59 06:59 18:59 Output Total 0 Balance 0 Output: Stool 0 Other: Voiding Method Toilet Toilet # Voids 1 - Labs CBC & Chem 7: 10/21/24 04:44 10/21/24 04:44
[2024-10-24 08:35] VITALS: BP 110/74; PULSE 83; RESP 15; TEMP 97.9
== END 2024-10-24 09:51 | disposition home health service (06) | DRG 451 ==
LOC: EC 10:32 → 1SOBS 14:07 → OBSVTOIN 14:08 → 1SOBS 16:35 → 4SSUR 10-18 16:19
PROVIDERS: ADMIT Orthopaedic Surgery; ATTEND Orthopaedic Surgery
PROC: 01NB0ZZ Release Lumbar Nerve, Open Approach (ICD-10-PCS; 2024-10-20)
PROC: 01NR0ZZ Release Sacral Nerve, Open Approach (ICD-10-PCS; 2024-10-20)
PROC: 0SG30AJ Fusion of Lumbosacral Joint with Interbody Fusion Device, Posterior Approach, Anterior Column, Open Approach (ICD-10-PCS; principal; 2024-10-20 09:00)
PROC: 0ST40ZZ Resection of Lumbosacral Disc, Open Approach (ICD-10-PCS; 2024-10-20 09:00)
DX: M51.371 Other intervertebral disc degeneration, lumbosacral region with lower extremity pain only (principal); E87.20 Acidosis, unspecified; E88.819 Insulin resistance, unspecified; E11.9 Type 2 diabetes mellitus without complications; D72.828 Other elevated white blood cell count; F90.9 Attention-deficit hyperactivity disorder, unspecified type; I10 Essential (primary) hypertension; M25.78 Osteophyte, vertebrae; M47.27 Other spondylosis with radiculopathy, lumbosacral region; M51.27 Other intervertebral disc displacement, lumbosacral region; M48.061 Spinal stenosis, lumbar region without neurogenic claudication; M48.07 Spinal stenosis, lumbosacral region; R53.81 Other malaise; Z79.899 Other long term (current) drug therapy; Z79.84 Long term (current) use of oral hypoglycemic drugs; Z79.891 Long term (current) use of opiate analgesic; Z79.52 Long term (current) use of systemic steroids
CPT/HCPCS: 36410; 36415; 72100; 72131; 72158; 76937; 80048; 80053; 83036; 83735; 84703; 85025; 85610; 85730; 86850; 86900; 86901; 93005